=== PATIENT | female | born 1955 | race Caucasian/White ===

== ENCOUNTER 2017-09-07 13:32 | Emergency (ER) | payer SELFPAY ==
--- NOTE | 2017-09-07 14:09 | ER Document Report ---
ED Medical Screen (RME) - General Chief Complaint: Numbness of Arm Stated Complaint: RIGHT SIDED NUMBNESS Time Seen by Provider: 09/07/17 14:06 Mode of Arrival: Ambulatory Information source: Patient Notes: This is a 61-year-old female with a history of rheumatoid arthritis, neuropathy , hypertension who presents to the emergency room with a one-week history of right facial numbness in the setting of medical noncompliance. Patient states her Medicaid ran out she has not been on her medicine since. She denies any focal motor weakness. She denies any pain. The numbness has been constant for the past week. I have greeted and performed a rapid initial assessment of this patient. A comprehensive ED assessment and evaluation of the patient, analysis of test results and completion of medical decision making process we will be contacted by additional ED providers. TRAVEL OUTSIDE OF THE [place] IN LAST 30 DAYS: No - Related Data Allergies/Adverse Reactions: No Known Allergies Allergy (Verified 09/07/17 13:33) Past Medical History - Social History Chew tobacco use (# tins/day): No Frequency of alcohol use: None Drug Abuse: None - Past Medical History Cardiac Medical History: Reports: Hx Hypertension Renal/ Medical History: Denies: Hx Peritoneal Dialysis Psychiatric Medical History: Reports: Hx Anxiety, Hx Dementia - Immunizations Hx Diphtheria, Pertussis, Tetanus Vaccination: Yes Physical Exam - Vital signs Vitals: Temp Pulse Resp BP Pulse Ox 98.1 F 94 20 164/113 H 96 09/07/17 13:37 09/07/17 13:37 09/07/17 13:37 09/07/17 13:37 09/07/17 13:37 Course - Vital Signs Vital signs: Temp Pulse Resp BP Pulse Ox 98.1 F 94 20 164/113 H 96 09/07/17 13:37 09/07/17 13:37 09/07/17 13:37 09/07/17 13:37 09/07/17 13:37
[2017-09-07 14:22] LABS: ABSOLUTE BASOPHILS # (AUTO) 0.1 10^3/uL (0.0-0.2); ABSOLUTE EOSINOPHILS # (AUTO) 0.1 10^3/uL (0.0-0.6); ABSOLUTE MONOCYTES (AUTO) 0.9 10^3/uL (0.1-1.4); ABSOLUTE NEUT (AUTO) 4.3 10^3/uL (1.7-8.2); BASOPHILS % (AUTO) 1.1 % (0-2); EOSINOPHILS % (AUTO) 1.3 % (0-6); HEMATOCRIT 39.8 % (36.0-47.0); HEMOGLOBIN 13.3 g/dL (12.0-15.5); LYMPHOCYTES % (AUTO) 35.3 % (13-45); MEAN CORPUSCULAR HEMOGLOBIN 33.6 pg (27.0-33.4); MEAN CORPUSCULAR HGB CONC 33.4 g/dL (32.0-36.0); MEAN CORPUSCULAR VOLUME 101 fl (80-97); MONOCYTES % (AUTO) 11.1 % (3-13); PLATELET COUNT 245 10^3/uL (150-450); RED BLOOD COUNT 3.96 10^6/uL (3.72-5.28); RED CELL DISTRIBUTION WIDTH 13.5 % (11.5-14.0); SEGMENTED NEUTROPHILS % (AUTO) 51.2 % (42-78); TOTAL CELLS COUNTED % (AUTO) 100 %; WHITE BLOOD COUNT 8.5 10^3/uL (4.0-10.5)
[2017-09-07] MEDS ORDERED: LISINOPRIL 5 MG TABLET PO ONE (14:31)
[2017-09-07 14:45] LABS: ALANINE AMINOTRANSFERASE 29 U/L (9-52); ALBUMIN 4.6 g/dL (3.5-5.0); ALKALINE PHOSPHATASE 86 U/L (38-126); ANION GAP 17 (5-19); ASPARTATE AMINO TRANSFERASE 38 U/L (14-36); BILIRUBIN,DIRECT 0.3 mg/dL (0.0-0.4); BILIRUBIN,TOTAL 0.3 mg/dL (0.2-1.3); BLOOD UREA NITROGEN 20 mg/dL (7-20); CALCIUM 9.8 mg/dL (8.4-10.2); CARBON DIOXIDE 18 mmol/L (22-30); CHLORIDE 109 mmol/L (98-107); GLUCOSE 115 mg/dL (75-110); POTASSIUM 3.6 mmol/L (3.6-5.0); TOTAL PROTEIN 8.2 g/dL (6.3-8.2)
--- NOTE | 2017-09-07 14:51 | RADIOLOGY REPORT (SQ) ---
EXAM DESCRIPTION: CT HEAD WITHOUT COMPLETED DATE/TIME: 09/07/2017 2:35 pm REASON FOR STUDY: right facial numbness COMPARISON: None. TECHNIQUE: Axial images acquired through the brain without intravenous contrast. Images reviewed wi th bone, brain and subdural windows. Additional sagittal and coronal reconstructions were generated. Images stored on PACS. All CT scanners at this facility use dose modulation, iterative reconstruction, and/or weight based d osing when appropriate to reduce radiation dose to as low as reasonably achievable (ALARA). [facility]: Dose Right [facility]: CareDose [facility]: Dose Right [facility]: Teradose 4D [facility]: Smart [employer] RADIATION DOSE: CT Rad equipment meets quality standard of care and radiation dose reduction techniq ues were employed. CTDIvol: 53.2 mGy. DLP: 964 mGy-cm.mGy. LIMITATIONS: None. FINDINGS: VENTRICLES: Prominent. CEREBRUM: No masses. No hemorrhage. No midline shift. Areas of low density in the white matter mos t likely due to chronic micro-vascular ischemic change. No evidence for acute infarction. CEREBELLUM: No masses. No hemorrhage. No alteration of density. No evidence for acute infarction. EXTRAAXIAL SPACES: Age-related involutional change. No fluid collections. No masses. ORBITS AND GLOBE: No intra- or extraconal masses. Normal contour of globe without masses. CALVARIUM: No fracture. PARANASAL SINUSES: No fluid or mucosal thickening. SOFT TISSUES: No mass or hematoma. OTHER: No other significant finding. IMPRESSION: CHRONIC CHANGES OF ATROPHY AND MICROVASCULAR ISCHEMIA. NO ACUTE PROCESS. EVIDENCE OF ACUTE STROKE: NO. TECHNICAL DOCUMENTATION: JOB ID: [id number] Quality ID # [id number]: Final reports with documentation of one or more dose reduction techniques (e.g., Au tomated exposure control, adjustment of the mA and/or kV according to patient size, use of iterative reconstruction technique) 2010 [employer]- All Rights Reserved Reading location - IP/workstation name: [email or web address]
--- NOTE | 2017-09-07 15:38 | ER Document Report ---
ED General - General Chief Complaint: Numbness of Arm Stated Complaint: RIGHT SIDED NUMBNESS Time Seen by Provider: 09/07/17 14:06 Mode of Arrival: Ambulatory Information source: Patient Notes: 61-year-old female presents emergency department with a one-week history of right facial numbness and right first 3 finger numbness. Symptoms have been constant. Patient denies any alleviating or exacerbating factors. She has a history of rheumatoid arthritis. She does not take any medications currently. Patient denies a history of CVA. Patient denies any vision changes, speech changes, weakness. TRAVEL OUTSIDE OF THE [place] IN LAST 30 DAYS: No - HPI Patient complains to provider of: R facial numbness Onset: Last week Onset/Duration: Gradual Severity: None Pain Level: Denies Associated symptoms: None Exacerbated by: Denies Relieved by: Denies Similar symptoms previously: No Recently seen / treated by doctor: No - Related Data Allergies/Adverse Reactions: No Known Allergies Allergy (Verified 09/07/17 13:33) Past Medical History - General Information source: Patient - Social History Smoking Status: Never Smoker Chew tobacco use (# tins/day): No Frequency of alcohol use: None Drug Abuse: None Family History: Reviewed & Not Pertinent Patient has suicidal ideation: No Patient has homicidal ideation: No - Past Medical History Cardiac Medical History: Reports: Hx Hypertension Renal/ Medical History: Denies: Hx Peritoneal Dialysis Psychiatric Medical History: Reports: Hx Anxiety, Hx Dementia - Immunizations Hx Diphtheria, Pertussis, Tetanus Vaccination: Yes Review of Systems - Review of Systems Constitutional: No symptoms reported EENT: No symptoms reported Cardiovascular: No symptoms reported Respiratory: No symptoms reported Gastrointestinal: No symptoms reported Genitourinary: No symptoms reported Musculoskeletal: No symptoms reported Skin: No symptoms reported Neurological/Psychological: Numbness -: Yes All other systems reviewed and negative Physical Exam - Vital signs Vitals: Temp Pulse Resp BP Pulse Ox 98.1 F 94 20 164/113 H 96 09/07/17 13:37 09/07/17 13:37 09/07/17 13:37 09/07/17 13:37 09/07/17 13:37 Interpretation: Hypertensive - Notes Notes: PHYSICAL EXAMINATION: GENERAL: Well-appearing, well-nourished and in no acute distress. HEAD: Atraumatic, normocephalic. EYES: Pupils equal round and reactive to light, extraocular movements intact, conjunctiva are normal. ENT: Nares patent, oropharynx clear without exudates. Moist mucous membranes. NECK: Normal range of motion, supple without lymphadenopathy LUNGS: Breath sounds clear to auscultation bilaterally and equal. No wheezes rales or rhonchi. HEART: Regular rate and rhythm without murmurs ABDOMEN: Soft, nontender, nondistended abdomen. No guarding, no rebound. No masses appreciated. Female : deferred Musculoskeletal: Normal range of motion, no pitting or edema. No cyanosis. NEUROLOGICAL: Cranial nerves grossly intact. Normal speech, normal gait. Normal motor exams. Decreased sensation to the Right lower face and Right first 3 fingers. PSYCH: Normal mood, normal affect. SKIN: Warm, Dry, normal turgor, no rashes or lesions noted. Course - Re-evaluation Re-evalutation: 09/07/17 16:25 NIH stroke score of 1. As symptoms have been ongoing for 1 week, patient is not a TPA candidate. I will refer the patient to neurology outpatient. Patient told to take a daily 325mg aspirin. I discussed the slightly elevated creatinine with the patient. She will follow up with her PCP regarding this. Patient instructed to take the medication as directed, to follow-up with her primary care physician and neurologist this week, and to return to emergency department for worsening symptoms. Patient and her family are agreeable with plan of care. - Vital Signs Vital signs: Temp Pulse Resp BP Pulse Ox 98.0 F 74 16 186/92 H 98 09/07/17 16:21 09/07/17 16:21 09/07/17 16:21 09/07/17 16:21 09/07/17 16:21 - Laboratory Result Diagrams: 09/07/17 14:15 09/07/17 14:15 Laboratory results interpreted by me: 09/07/17 09/07/17 14:15 14:15 MCV 101 H MCH 33.6 H Chloride 109 H Carbon Dioxide 18 L Creatinine 1.43 H Est GFR ( Amer) 45 L Est GFR (Non-Af Amer) 38 L Glucose 115 H AST 38 H - EKG Interpretation by Me Rhythm: NSR - Rate 77, MD interval 156, QRS duration 84, QTc 453, normal sinus rhythm, no ischemic changes. Discharge - Discharge Clinical Impression: Numbness and tingling Condition: Stable Disposition: HOME, SELF-CARE Instructions: Numbness or Paresthesia ([facility]) Additional Instructions: Follow up with your primary care physician this week. Take a daily 325mg aspirin. Return to the ED for worsening symptoms. Referrals: NASIM MIDDLETON MD [Primary Care Provider] - Follow up as needed JAYNA CHAPMAN MD [NO LOCAL MD] - Follow up as needed
--- NOTE | 2017-09-07 15:43 | RADIOLOGY REPORT (SQ) ---
EXAM DESCRIPTION: CHEST 2 VIEWS COMPLETED DATE/TIME: 09/07/2017 2:39 pm REASON FOR STUDY: right facial numbness COMPARISON: None. EXAM PARAMETERS: NUMBER OF VIEWS: two views TECHNIQUE: Digital Frontal and Lateral radiographic views of the chest acquired. RADIATION DOSE: NA LIMITATIONS: none FINDINGS: LUNGS AND PLEURA: Nodularity at the left upper lobe extending to the pleura. No pleural e ffusion or pneumothorax. MEDIASTINUM AND HILAR STRUCTURES: No masses or contour abnormalities. HEART AND VASCULAR STRUCTURES: Heart normal size. No evidence for failure. BONES: There are healed right-sided rib fractures. HARDWARE: None in the chest. IMPRESSION: Nodularity at the left upper lobe extending to the pleura ; CT thorax can help in furthe r evaluation. TECHNICAL DOCUMENTATION: JOB ID: [id number] 2010 [employer]- All Rights Reserved Reading location - IP/workstation name: [email or web address]
[2017-09-07 16:23] VITALS: BP 186/92
--- NOTE | 2017-09-08 07:28 | EKG REPORT ---
SEVERITY:- NORMAL ECG - SINUS RHYTHM : Confirmed by: Jermaine Delgado MD 08-Sep-2017 07:28:07
== END 2017-09-07 16:46 | disposition home or self-care (01) ==
LOC: ER 13:32
DX: R20.0 Anesthesia of skin (principal); R20.2 Paresthesia of skin; I10 Essential (primary) hypertension; R79.89 Other specified abnormal findings of blood chemistry
CPT/HCPCS: 36415; 70450; 71046; 80053; 85025; 93005; 93010; 99285

== ENCOUNTER 2019-03-29 13:35 | Inpatient (IN) | payer MEDICARE ==
--- NOTE | 2019-03-29 13:43 | ER Document Report ---
ED Medical Screen (RME) - General Chief Complaint: Fall Stated Complaint: FALL/RIGHT SIDE PAIN Time Seen by Provider: 03/29/19 13:40 Mode of Arrival: Wheelchair Information source: Patient Notes: Patient presents emergency department with complaints of right hip pain. Reports she tripped and fell on her right hip. Reports history of fracture hip. Patient has swelling to the right side. X-ray ordered. I have greeted and performed a rapid initial assessment of this patient. A comprehensive ED assessment and evaluation of the patient, analysis of test results and completion of the medical decision making process will be conducted by additional ED providers. TRAVEL OUTSIDE OF THE [place] IN LAST 30 DAYS: No - Related Data Allergies/Adverse Reactions: No Known Allergies Allergy (Verified 09/07/17 13:33) Past Medical History - Past Medical History Cardiac Medical History: Reports: Hx Hypertension Renal/ Medical History: Denies: Hx Peritoneal Dialysis Psychiatric Medical History: Reports: Hx Anxiety, Hx Dementia - Immunizations Hx Diphtheria, Pertussis, Tetanus Vaccination: Yes Physical Exam - Vital signs Vitals: Temp Pulse Resp BP Pulse Ox 98.0 F 97 16 178/105 H 95 03/29/19 13:51 03/29/19 13:51 03/29/19 13:51 03/29/19 13:51 03/29/19 13:51 Course - Vital Signs Vital signs: Temp Pulse Resp BP Pulse Ox 97.8 F 82 12 162/108 H 96 03/29/19 14:43 03/29/19 14:43 03/29/19 14:43 03/29/19 14:43 03/29/19 14:43 - Laboratory Result Diagrams: 03/29/19 15:00 03/29/19 15:00 Laboratory results interpreted by me: 03/29/19 03/29/19 15:00 15:00 WBC 22.5 H Seg Neuts % (Manual) 91 H Lymphocytes % (Manual) 5 L Abs Neuts (Manual) 20.5 H Creatinine 1.32 H Est GFR ( Amer) 50 L Est GFR (MDRD) Non-Af 41 L Glucose 113 H AST 38 H Alkaline Phosphatase 138 H Total Protein 8.9 H Doctor's Discharge - Discharge Clinical Impression: Hip fracture, Hypertension, Fall Condition: Fair Disposition: ADMITTED INPATIENT
[2019-03-29] MEDS ORDERED: FENTANYL CITRATE INJ/PF 100 MCG/2 ML AMPUL IV ONE (14:22)
--- NOTE | 2019-03-29 14:48 | RADIOLOGY REPORT (SQ) ---
EXAM DESCRIPTION: HIP RIGHT AP/LATERAL COMPLETED DATE/TIME: 03/29/2019 2:34 pm REASON FOR STUDY: fall, hx fx COMPARISON: None. NUMBER OF VIEWS: Two views. TECHNIQUE: AP pelvis and additional frog-leg view of the right hip. LIMITATIONS: None. FINDINGS: MINERALIZATION: Normal. RIGHT HIP: Comminuted intertrochanteric fracture. No worrisome bone lesions. LEFT HIP: No fracture or dislocation. No worrisome bone lesions. PUBIS AND ISCHIUM: No fracture. PELVIS: No fracture. SACRUM: No fracture or dislocation. No worrisome bone lesions. LOWER LUMBAR SPINE: No fracture or dislocation. No worrisome bone lesions. No significant disc disea se. SOFT TISSUES: No findings. OTHER: No other significant finding. IMPRESSION: COMMINUTED INTERTROCHANTERIC FRACTURE OF THE RIGHT HIP. TECHNICAL DOCUMENTATION: JOB ID: [id number] [employer] All Rights Reserved Reading location - IP/workstation name: [email or web address]
--- NOTE | 2019-03-29 15:08 | ER Document Report ---
ED Fall - General Chief Complaint: Fall Stated Complaint: FALL/RIGHT SIDE PAIN Time Seen by Provider: 03/29/19 13:40 Mode of Arrival: Wheelchair Information source: Patient Notes: Patient reports tripping over a coremaker floor yesterday evening falling landing on her right hip yesterday. Patient without any other injury. Patient complains of right hip pain and inability to ambulate. TRAVEL OUTSIDE OF THE [place] IN LAST 30 DAYS: No - HPI Occurred: Yesterday Where: Home Context: Tripped Associated symptoms: Difficulty walking Location of injury/pain: Hip Quality of pain: Sharp Pain Level: 4 - Related data Allergies/Adverse Reactions: No Known Allergies Allergy (Verified 09/07/17 13:33) Past Medical History - General Information source: Patient, Relative - Social History Smoking Status: Current Every Day Smoker Frequency of alcohol use: Occasional, former heavy Drug Abuse: Other - Family report misuse of prescription and OTC meds when available to pt Occupation: none Lives with: Family Family History: Reviewed & Not Pertinent - Past Medical History Cardiac Medical History: Reports: Hx Hypertension Renal/ Medical History: Denies: Hx Peritoneal Dialysis Musculoskeletal Medical History: Reports Hx Arthritis - RA Psychiatric Medical History: Reports: Hx Anxiety Surgical Hx: Negative - Immunizations Hx Diphtheria, Pertussis, Tetanus Vaccination: Yes Review of Systems - Review of Systems Constitutional: No symptoms reported. denies: Fever, Recent illness EENT: No symptoms reported Cardiovascular: No symptoms reported. denies: Chest pain Respiratory: No symptoms reported. denies: Cough, Short of breath Gastrointestinal: No symptoms reported. denies: Vomiting Genitourinary: No symptoms reported. denies: Dysuria Female Genitourinary: No symptoms reported Musculoskeletal: Joint pain - Right hip. denies: Back pain Skin: No symptoms reported Hematologic/Lymphatic: No symptoms reported Neurological/Psychological: denies: Lost consciousness, Headaches Physical Exam - Vital signs Vitals: Temp Pulse Resp BP Pulse Ox 98.0 F 97 16 178/105 H 95 03/29/19 13:51 03/29/19 13:51 03/29/19 13:51 03/29/19 13:51 03/29/19 13:51 - General General appearance: Appears well, Alert In distress: None - HEENT Head: Normocephalic, Atraumatic Eyes: Normal Conjunctiva: Normal Nasal: Normal Mouth/Lips: Normal Mucous membranes: Normal Neck: Normal, Supple. No: Lymphadenopathy - Respiratory Respiratory status: No respiratory distress Chest status: Nontender Breath sounds: Normal Chest palpation: Normal - Cardiovascular Rhythm: Regular Heart sounds: S1 appreciated, S2 appreciated Pulses: Normal: Dorsalis pedis - Abdominal Inspection: Normal Tenderness: Nontender - Extremities General upper extremity: Normal inspection, Normal strength General lower extremity: Tender - Right hip tenderness, Edema Hip: Tender - Right hip, Deformity, Ecchymosis, Pain with ROM, Unable to bear weight - Neurological Neuro grossly intact: Yes Cognition: Normal [place] Coma Scale Eye Opening: Spontaneous Michelle Coma Scale Verbal: Oriented [place] Coma Scale Motor: Obeys Commands Michelle Coma Scale Total: 15 - Psychological Associated symptoms: Normal affect, Normal mood - Skin Skin Temperature: Warm Skin Color: Normal Course - Re-evaluation Re-evalutation: 03/29/19 15:[address] Crawford regarding patient presentation, advises calling back once patient's diagnostic test results have returned so he can determine whether or not patient should be admitted under his services or the patient's primary doctor services. 03/29/19 17:[address] Remy who does agree to accept patient to a telemetry bed. 03/29/19 20:32 - Vital Signs Vital signs: Temp Pulse Resp BP Pulse Ox 97.8 F 82 12 162/108 H 96 03/29/19 14:43 03/29/19 14:43 03/29/19 14:43 03/29/19 14:43 03/29/19 14:43 - Laboratory Result Diagrams: 03/29/19 15:00 03/29/19 15:00 Laboratory results interpreted by me: 03/29/19 03/29/19 15:00 15:00 WBC 22.5 H Seg Neuts % (Manual) 91 H Lymphocytes % (Manual) 5 L Abs Neuts (Manual) 20.5 H Creatinine 1.32 H Est GFR ( Amer) 50 L Est GFR (MDRD) Non-Af 41 L Glucose 113 H AST 38 H Alkaline Phosphatase 138 H Total Protein 8.9 H - Diagnostic Test Radiology reviewed: Image reviewed, Reports reviewed Discharge - Discharge Clinical Impression: Hip fracture Qualifiers: Encounter type: initial encounter Fracture type: closed Laterality: right Qualified Code(s): S72.001A - Fracture of unspecified part of neck of right femur, initial encounter for closed fracture Hypertension Qualifiers: Hypertension type: unspecified Qualified Code(s): I10 - Essential (primary) hypertension Fall Qualifiers: Encounter type: initial encounter Qualified Code(s): W19.XXXA - Unspecified fall, initial encounter Condition: Fair Disposition: ADMITTED INPATIENT Admitting Provider: Jonel Unit Admitted: Telemetry
--- NOTE | 2019-03-29 15:23 | RADIOLOGY REPORT (SQ) ---
EXAM DESCRIPTION: CHEST SINGLE VIEW COMPLETED DATE/TIME: 03/29/2019 3:12 pm REASON FOR STUDY: fall COMPARISON: 09/07/2017. EXAM PARAMETERS: NUMBER OF VIEWS: One view. TECHNIQUE: Single frontal radiographic view of the chest acquired. RADIATION DOSE: NA LIMITATIONS: None. FINDINGS: LUNGS AND PLEURA: Chronic changes in the left upper lobe. No focal infiltrates, masses or pneumothorax. No pleural effusion. MEDIASTINUM AND HILAR STRUCTURES: No masses. Contour normal. HEART AND VASCULAR STRUCTURES: Heart normal in size. Normal vasculature. BONES: No acute findings. Old rib fractures. HARDWARE: None in the chest. OTHER: No other significant finding. IMPRESSION: NO ACUTE RADIOGRAPHIC FINDING IN THE CHEST. TECHNICAL DOCUMENTATION: JOB ID: [id number] [employer]- All Rights Reserved Reading location - IP/workstation name: [email or web address]
[2019-03-29 15:42] LABS: HEMATOCRIT 37.2 % (36.0-47.0); HEMOGLOBIN 12.5 g/dL (12.0-15.5); MEAN CORPUSCULAR HEMOGLOBIN 32.1 pg (27.0-33.4); MEAN CORPUSCULAR HGB CONC 33.6 g/dL (32.0-36.0); MEAN CORPUSCULAR VOLUME 96 fl (80-97); PLATELET COUNT 358 10^3/uL (150-450); RED BLOOD COUNT 3.89 10^6/uL (3.72-5.28); RED CELL DISTRIBUTION WIDTH 13.9 % (11.5-14.0); WHITE BLOOD COUNT 22.5 10^3/uL (4.0-10.5)
[2019-03-29 15:58] LABS: ALBUMIN 4.4 g/dL (3.5-5.0); ALKALINE PHOSPHATASE 138 U/L (38-126); ANION GAP 15 (5-19); ASPARTATE AMINO TRANSFERASE 38 U/L (14-36); BILIRUBIN,DIRECT 0.4 mg/dL (0.0-0.4); BILIRUBIN,TOTAL 0.8 mg/dL (0.2-1.3); BLOOD UREA NITROGEN 16 mg/dL (7-20); CALCIUM 9.7 mg/dL (8.4-10.2); CARBON DIOXIDE 22 mmol/L (22-30); CHLORIDE 106 mmol/L (98-107); GLUCOSE 113 mg/dL (75-110); POTASSIUM 4.6 mmol/L (3.6-5.0); TOTAL PROTEIN 8.9 g/dL (6.3-8.2)
[2019-03-29 16:14] LABS: ABSOLUTE LYMPHOCYTES# (MANUAL) 1.1 10^3/uL (0.5-4.7); ABSOLUTE MONOCYTES # (MANUAL) 0.9 10^3/uL (0.1-1.4); BASOPHILS % (MANUAL) 0 % (0-2); EOSINOPHILS % (MANUAL) 0 % (0-6); LYMPHOCYTES % (MANUAL) 5 % (13-45); MONOCYTES % (MANUAL) 4 % (3-13); PLATELET COMMENT ADEQUATE; PLATELET LARGE PRESENT; RBC MORPHOLOGY COMMENT NORMO-CYTIC/CHROMIC; SEGMENTED NEUTROPHILS % (MAN) 91 % (42-78); TOTAL CELLS COUNTED 100
[2019-03-29] MEDS ORDERED: NORMAL SALINE 1000 ML 1,000 ML IV ONE (16:55)
[2019-03-29] MEDS ORDERED: LISINOPRIL 10 MG TABLET PO ONE ×2 (17:11→19:00)
[2019-03-29] MEDS ORDERED: MORPHINE SULFATE 10 MG/ML INJ IV ONE (17:11)
[2019-03-29] MEDS ORDERED: MORPHINE SULFATE 10 MG/ML INJ IV PRN (18:16)
[2019-03-29] MEDS ORDERED: GLUCAGON,HUMAN RECOMB 1 MG INJ SUBCUT PRN (18:26)
[2019-03-29] MEDS ORDERED: DEXTROSE 50%-WATER 25 GM/50 ML DISP.SYRIN IV PRN ×2 (18:26)
[2019-03-29] MEDS ORDERED: DEXTROSE 40% GEL 15 GM TUBE PO PRN ×2 (18:26)
--- NOTE | 2019-03-29 18:31 | PDOC CONSULTATION ---
Consultation Consult Date: 03/29/19 Attending physician:: ARLETH VILLANUEVA Provider Consulted: LONG TALBERT History of Present Illness Admission Date/PCP: 03/29/19 17:13 NASIM MIDDLETON MD Patient complains of: Right Hip Pain History of Present Illness: DARIA FITZGERALD is a 63 year old female who yesterday evening sustained a fall onto her right hip and ribs. Patient was unable to ambulate and was then brought to the emergency room today. Patient states pain is worse with any attempted motion and usage of the leg. Has improved somewhat with pain medication. Denies numbness or tingling. Denies headache dizziness or loss of consciousness. Past Medical History Cardiac Medical History: Reports: Hypertension Musculoskeltal Medical History: Reports: Arthritis - RA Psychiatric Medical History: Reports: Dementia Social History Smoking Status: Current Every Day Smoker Family History Family History: Reviewed & Not Pertinent Parental Family History Reviewed: No Children Family History Reviewed: No Sibling(s) Family History Reviewed.: No Medication/Allergy Home Medications: No Home Medications 09/07/17 Allergies/Adverse Reactions: No Known Allergies Allergy (Verified 09/07/17 13:33) Review of Systems Constitutional: ABSENT: chills, fever(s), headache(s), weight gain, weight loss Eyes: ABSENT: visual disturbances Ears: ABSENT: hearing changes Cardiovascular: ABSENT: chest pain, dyspnea on exertion, edema, orthropnea, palpitations Respiratory: ABSENT: cough, hemoptysis Gastrointestinal: ABSENT: abdominal pain, constipation, diarrhea, hematemesis, hematochezia, nausea, vomiting Genitourinary: ABSENT: dysuria, hematuria Musculoskeletal: PRESENT: as per HPI Integumentary: ABSENT: rash, wounds Neurological: ABSENT: abnormal gait, abnormal speech, confusion, dizziness, focal weakness, syncope Psychiatric: ABSENT: anxiety, depression, homidical ideation, suicidal ideation Endocrine: ABSENT: cold intolerance, heat intolerance, menstrual abnormalities, polydipsia, polyuria Hematologic/Lymphatic: ABSENT: easy bleeding, easy bruising, lymphadenopathy Physical Exam Vital Signs: Temp Pulse Resp BP Pulse Ox 97.8 F 82 12 162/108 H 96 03/29/19 14:43 03/29/19 14:43 03/29/19 14:43 03/29/19 14:43 03/29/19 14:43 Intake & Output 03/28/19 03/29/19 03/30/19 06:59 06:59 06:59 Intake Total 1000 Balance 1000 Weight 56 kg General appearance: PRESENT: no acute distress, well-developed, well-nourished, other - Thin appearing female Head exam: PRESENT: atraumatic, normocephalic Eye exam: PRESENT: conjunctiva pink, EOMI, PERRLA. ABSENT: scleral icterus Ear exam: PRESENT: normal external ear exam Mouth exam: PRESENT: moist, tongue midline Teeth exam: PRESENT: poor dentation Neck exam: PRESENT: full ROM. ABSENT: carotid bruit, JVD, lymphadenopathy, thyromegaly Respiratory exam: PRESENT: unlabored, other - Tenderness along the right chest wall Cardiovascular exam: PRESENT: RRR. ABSENT: diastolic murmur, rubs, systolic murmur Pulses: PRESENT: normal dorsalis pedis pul, +2 pedal pulses bilateral Vascular exam: PRESENT: normal capillary refill GI/Abdominal exam: PRESENT: normal bowel sounds, soft. ABSENT: distended, guarding, mass, organolmegaly, rebound, tenderness Rectal exam: PRESENT: deferred Musculoskeletal exam: PRESENT: other - Right hip: Short/externally rotated. Positive logroll. No calf tenderness. Negative Homans. Intact plantarflexion/dorsiflexion. No sensory deficits. Dorsalis pedis pulse 2+. Neurological exam: PRESENT: alert, awake, oriented to person, oriented to place, oriented to time, oriented to situation, CN II-XII grossly intact. ABSENT: motor sensory deficit Psychiatric exam: PRESENT: appropriate affect, normal mood. ABSENT: homicidal ideation, suicidal ideation Skin exam: PRESENT: dry, intact, warm. ABSENT: cyanosis, rash Results Laboratory Results: 03/29/19 15:00 03/29/19 15:00 03/29/19 03/29/19 15:00 15:00 WBC 22.5 H RBC 3.89 Hgb 12.5 Hct 37.2 MCV 96 MCH 32.1 MCHC 33.6 RDW 13.9 Plt Count 358 Seg Neutrophils % Not Reportable Sodium 142.8 Potassium 4.6 Chloride 106 Carbon Dioxide 22 Anion Gap 15 BUN 16 Creatinine 1.32 H Est GFR ( Amer) 50 L Glucose 113 H Calcium 9.7 Total Bilirubin 0.8 AST 38 H Alkaline Phosphatase 138 H Total Protein 8.9 H Albumin 4.4 Impressions: Hip/Pelvis X-Ray 03/29/19 13:42 IMPRESSION: COMMINUTED INTERTROCHANTERIC FRACTURE OF THE RIGHT HIP. Chest X-Ray 03/29/19 15:01 IMPRESSION: NO ACUTE RADIOGRAPHIC FINDING IN THE CHEST. Status: Image reviewed by me - I have reviewed patient's radiographs consistent with comminuted intertrochanteric fracture Assessment & Plan - Diagnosis (1) Fracture, intertrochanteric, right femur Qualifiers: Encounter type: initial encounter Fracture type: closed Fracture alignment: displaced Qualified Code(s): S72.141A - Displaced intertrochanteric fracture of right femur, initial encounter for closed fracture Is this a current diagnosis for this admission?: Yes Plan: Patient sustained right intertrochanteric fracture. Today I discussed treatment options with patient and family decision was made to proceed with operative intervention. Postoperative outcomes, prognosis, rehabilitation and expectations have been explained. Plan will be proceed with operative intervention on 03/30/2019 pending medical clearance. Risk and benefits of the surgical procedure were explained patient verbalized understanding consented for surgical procedure which includes right hip cephalo-medullary nail risks including anesthetic complications, excessive bleeding, infection, injury to surrounding nerves, vessels and tendons, bruising, healing difficulties, scar f ormation, hardware complication, posttraumatic arthritis and any unforseen complication.
--- NOTE | 2019-03-29 18:43 | EKG REPORT ---
SEVERITY:- NORMAL ECG - SINUS RHYTHM : Confirmed by: Jermaine Delgado MD 29-Mar-2019 18:42:29
[2019-03-29 18:50] LABS: PROTHROMBIN TIME 13.2 SEC (11.4-15.4)
[2019-03-29 18:51] LABS: PARTIAL THROMBOPLASTIN TIME 27.9 SEC (23.5-35.8)
[2019-03-29] MEDS: NORMAL SALINE 1000 ML 1,000 ML IV PRN (19:30)
[2019-03-29 20:11] LABS: APPEARANCE,URINE CLEAR; BILIRUBIN,URINE NEGATIVE (NEGATIVE); COLOR,URINE YELLOW; GLUCOSE, URINE NEGATIVE (NEGATIVE); KETONES,URINE NEGATIVE (NEGATIVE); PROTEIN,URINE 30 mg/dL (NEGATIVE); URINE SPECIFIC GRAVITY 1.013; UROBILINOGEN,URINE NEGATIVE mg/dL (<2.0)
[2019-03-29] MEDS: MORPHINE SULFATE 10 MG/ML INJ IV PRN ×2 (20:41→23:42)
[2019-03-30] MEDS ORDERED: INFLUENZA QUAD (6MOS+) 2019-20 VAC 0.5 ML SYR IM ONE (00:06)
[2019-03-30] MEDS: MORPHINE SULFATE 10 MG/ML INJ IV PRN ×4 (03:43→21:20)
[2019-03-30 05:14] LABS: HEMATOCRIT 34.4 % (36.0-47.0); HEMOGLOBIN 11.4 g/dL (12.0-15.5); MEAN CORPUSCULAR HEMOGLOBIN 31.8 pg (27.0-33.4); MEAN CORPUSCULAR HGB CONC 33.2 g/dL (32.0-36.0); MEAN CORPUSCULAR VOLUME 96 fl (80-97); PLATELET COUNT 327 10^3/uL (150-450); RED CELL DISTRIBUTION WIDTH 13.8 % (11.5-14.0); WHITE BLOOD COUNT 23.9 10^3/uL (4.0-10.5)
[2019-03-30 05:36] LABS: ALBUMIN 3.6 g/dL (3.5-5.0); ALKALINE PHOSPHATASE 112 U/L (38-126); ANION GAP 12 (5-19); ASPARTATE AMINO TRANSFERASE 28 U/L (14-36); BILIRUBIN,DIRECT 0.3 mg/dL (0.0-0.4); BILIRUBIN,TOTAL 0.7 mg/dL (0.2-1.3); BLOOD UREA NITROGEN 14 mg/dL (7-20); CALCIUM 8.9 mg/dL (8.4-10.2); CARBON DIOXIDE 20 mmol/L (22-30); CHLORIDE 109 mmol/L (98-107); GLUCOSE 97 mg/dL (75-110); POTASSIUM 4.2 mmol/L (3.6-5.0); TOTAL PROTEIN 7.5 g/dL (6.3-8.2)
[2019-03-30 06:00] LABS: ABSOLUTE LYMPHOCYTES# (MANUAL) 1.2 10^3/uL (0.5-4.7); ABSOLUTE MONOCYTES # (MANUAL) 0.5 10^3/uL (0.1-1.4); BAND NEUTROPHILS % (MANUAL) 1 % (3-5); BASOPHILS % (MANUAL) 1 % (0-2); EOSINOPHILS % (MANUAL) 0 % (0-6); LYMPHOCYTES % (MANUAL) 5 % (13-45); MONOCYTES % (MANUAL) 2 % (3-13); SEGMENTED NEUTROPHILS % (MAN) 91 % (42-78); TOTAL CELLS COUNTED 100
[2019-03-30] MEDS ORDERED: PANTOPRAZOLE SODIUM 40 MG TABLET.DR PO SCH (06:00)
[2019-03-30 06:01] LABS: PLATELET COMMENT ADEQUATE
[2019-03-30 06:03] LABS: RBC MORPHOLOGY COMMENT NORMO-CYTIC/CHROMIC
[2019-03-30] MEDS: PANTOPRAZOLE SODIUM 40 MG TABLET.DR PO SCH ×2 (06:39→18:53)
[2019-03-30] MEDS: LISINOPRIL 10 MG TABLET PO SCH (09:58)
[2019-03-30] MEDS: NORMAL SALINE 1000 ML 1,000 ML IV PRN (10:01)
--- NOTE | 2019-03-30 11:44 | PDOC H&P ---
History of Present Illness Admission Date/PCP: 03/29/19 17:13 NASIM MIDDLETON MD Patient complains of: Fall, Pain in right hip History of Present Illness: DARIA FITZGERALD is a 63 [address] of [address] Middleton who presented to the ED for further evaluation of pain in her right hip joint. Patient reported that she tripped over object in her home and fell. She subsequently developed pain in her right hip and difficulty with ambulation. She denied any preceding chest pain, palpitation, or subsequent loss of consciousness. Her initial evaluation was remarkable to right hip comminuted intertrochanteric fracture. She was seen in consultation by [employer] orthopedic surgeon with recommendation of surgical intervention and admission to medical service. Her morbidities are as listed below. Past Medical History Cardiac Medical History: Reports: Hypertension Musculoskeltal Medical History: Reports: Arthritis - RA Psychiatric Medical History: Reports: Dementia Social History Smoking Status: Current Every Day Smoker - Advance Directive Resuscitation Status: Full Code Family History Family History: Reviewed & Not Pertinent Parental Family History Reviewed: Yes Children Family History Reviewed: Yes Sibling(s) Family History Reviewed.: Yes Medication/Allergy Home Medications: Esomeprazole Mag Trihydrate [Nexium] 40 mg PO QHS 03/30/19 Allergies/Adverse Reactions: propoxyphene [From Darvocet-N] Allergy (Intermediate, Verified 03/29/19 23:22) VOMITING Review of Systems Constitutional: ABSENT: chills, fever(s), headache(s), weight gain, weight loss Eyes: ABSENT: visual disturbances Ears: ABSENT: hearing changes Nose, Mouth, and Throat: ABSENT: headache(s), vertigo Cardiovascular: ABSENT: chest pain, dyspnea on exertion, edema, orthropnea, palpitations Respiratory: ABSENT: cough, hemoptysis Gastrointestinal: ABSENT: abdominal pain, constipation, diarrhea, hematemesis, hematochezia, nausea, vomiting Genitourinary: ABSENT: dysuria, hematuria Musculoskeletal: PRESENT: deformity - multiple joints involvement with arthritis Integumentary: PRESENT: rash - on left leg, long standing.. ABSENT: wounds Neurological: ABSENT: abnormal gait, abnormal speech, confusion, dizziness, focal weakness, syncope Psychiatric: ABSENT: anxiety, depression, homidical ideation, suicidal ideation Endocrine: ABSENT: cold intolerance, heat intolerance, polydipsia, polyuria Hematologic/Lymphatic: ABSENT: easy bleeding, easy bruising, lymphadenopathy Allergic/Immunologic: ABSENT: seasonal rhinorrhea Physical Exam Vital Signs: Temp Pulse Resp BP Pulse Ox 97.8 F 82 12 162/108 H 96 03/29/19 14:43 03/29/19 14:43 03/29/19 14:43 03/29/19 14:43 03/29/19 14:43 Intake & Output 03/28/19 03/29/19 03/30/19 06:59 06:59 06:59 Weight 56 kg General appearance: PRESENT: mild distress - from right hip fracture relate pain, well-developed, well-nourished Head exam: PRESENT: atraumatic, normocephalic Eye exam: PRESENT: conjunctiva pink, EOMI, PERRLA. ABSENT: scleral icterus Ear exam: PRESENT: normal external ear exam Mouth exam: PRESENT: moist Respiratory exam: PRESENT: clear to auscultation dee Cardiovascular exam: PRESENT: RRR. ABSENT: diastolic murmur, rubs, systolic murmur Vascular exam: ABSENT: pallor GI/Abdominal exam: PRESENT: normal bowel sounds, soft. ABSENT: distended, guarding, mass, organolmegaly, rebound, tenderness Rectal exam: PRESENT: deferred Extremities exam: PRESENT: other - external rotation f right lower extremity related to her intertrochanteric fracture. ABSENT: pedal edema Neurological exam: PRESENT: alert, awake, oriented to person, oriented to place, oriented to time, oriented to situation, CN II-XII grossly intact. ABSENT: motor sensory deficit Psychiatric exam: PRESENT: appropriate affect, normal mood. ABSENT: homicidal ideation, suicidal ideation Skin exam: PRESENT: dry, rash - dry scaly excuriated rash on left leg and foot, warm Results Laboratory Results: 03/29/19 15:00 03/29/19 15:00 03/29/19 03/29/19 15:00 15:00 WBC 22.5 H RBC 3.89 Hgb 12.5 Hct 37.2 MCV 96 MCH 32.1 MCHC 33.6 RDW 13.9 Plt Count 358 Seg Neutrophils % Not Reportable Sodium 142.8 Potassium 4.6 Chloride 106 Carbon Dioxide 22 Anion Gap 15 BUN 16 Creatinine 1.32 H Est GFR ( Amer) 50 L Glucose 113 H Calcium 9.7 Total Bilirubin 0.8 AST 38 H Alkaline Phosphatase 138 H Total Protein 8.9 H Albumin 4.4 Impressions: Hip/Pelvis X-Ray 03/29/19 13:42 IMPRESSION: COMMINUTED INTERTROCHANTERIC FRACTURE OF THE RIGHT HIP. Chest X-Ray 03/29/19 15:01 IMPRESSION: NO ACUTE RADIOGRAPHIC FINDING IN THE CHEST. Assessment & Plan - Diagnosis (1) Fall Qualifiers: Encounter type: initial encounter Qualified Code(s): W19.XXXA - Unspecified fall, initial encounter Is this a current diagnosis for this admission?: Yes Plan: See covering admitting attending physician orders for details about care plan. (2) Fracture, intertrochanteric, right femur Qualifiers: Encounter type: initial encounter Fracture type: closed Fracture alignment: displaced Qualified Code(s): S72.141A - Displaced intertrochanteric fracture of right femur, initial encounter for closed fracture Is this a current diagnosis for this admission?: Yes Plan: See covering admitting attending physician orders for details about care plan. (3) Hypertension Qualifiers: Hypertension type: essential hypertension Qualified Code(s): I10 - Essential (primary) hypertension Is this a current diagnosis for this admission?: Yes Plan: See covering admitting attending physician orders for details about care plan. (4) Leukocytosis, unspecified Qualifiers: Leukocytosis type: unspecified Qualified Code(s): D72.829 - Elevated white blood cell count, unspecified Is this a current diagnosis for this admission?: Yes Plan: See covering admitting attending physician orders for details about care plan. - Time Time Spent: 50 to 70 Minutes Medications reviewed and adjusted accordingly: Yes Anticipated discharge: SNF - for short term rehabilitation Within: Other - Inpatient Certification Based on my medical assessment, after consideration of the patient's comorbidities, presenting symptoms, or acuity I expect that the services needed warrant INPATIENT care.: Yes I certify that my determination is in accordance with my understanding of Medicare's requirements for reasonable and necessary INPATIENT services [42 CFR 412.3e].: Yes Medical Necessity: Significant Comorbidiites Make Outpatient Treatment Too Risky, Need Close Monitoring Due to Risk of Patient Decompensation, Need For IV Fluids, Need For Continuous Telemetry Monitoring, Need for Surgery, Risk of Co mplication if Not Cared For in Hospital, Risk of Diagnosis Which Will Require Inpatient Eval/Care/Monitoring Post Hospital Care: D/C Ring Sewer Documentation - Plan Summary Plan Summary: See covering admitting attending physician orders for details about care plan. She is medically cleared for proposed surgical intervention as per orthopod schedule.
[2019-03-30] MEDS ORDERED: CEFAZOLIN INJ 1 GM VIAL ONE (14:01)
[2019-03-30] MEDS ORDERED: MIDAZOLAM 2 MG/2 ML INJ ONE (14:59)
[2019-03-30] MEDS ORDERED: KETAMINE HCL INJ 500 MG/10 ML VIAL ONE (14:59)
[2019-03-30] MEDS ORDERED: FENTANYL CITRATE INJ/PF 100 MCG/2 ML AMPUL ONE (14:59)
[2019-03-30] MEDS ORDERED: PROPOFOL INJ 200 MG/20 ML VIAL IV ONE (14:59)
[2019-03-30] MEDS ORDERED: FENTANYL CITRATE INJ/PF 100 MCG/2 ML AMPUL IV PRN ×3 (16:27)
[2019-03-30] MEDS ORDERED: MEPERIDINE HCL/PF INJ 25 MG/1 ML DISP.SYRIN IV PRN (16:27)
[2019-03-30] MEDS ORDERED: PROMETHAZINE HCL INJ 25 MG/1 ML VIAL IV PRN ×2 (16:27)
[2019-03-30] MEDS ORDERED: DIPHENHYDRAMINE HCL 50 MG/ML VIAL IV PRN (16:27)
[2019-03-30] MEDS ORDERED: MORPHINE SULFATE 10 MG/ML INJ IV PRN (16:27)
--- NOTE | 2019-03-30 17:26 | Operative Report ---
Operative Report DATE OF SURGERY: 03/30/19 PREOPERATIVE DIAGNOSIS: Right reverse oblique intertrochanteric fracture POSTOPERATIVE DIAGNOSIS: Same OPERATION: Right hip cephalo-medullary long nail SURGEON: LONG TALBERT COMPLICATIONS: None ESTIMATED BLOOD LOSS: 150 cc PROCEDURE: Indication for above procedure: 63-year-old female who sustained a fall at home injuring her right hip. She was then seen at the emergency room where x-rays confirmed fracture. Patient was admitted to the medical service and was deemed medically optimized for operative intervention. Risk and benefits of the surgical procedure were explained to the patient and family verbalized understanding consented for procedure. Procedure in detail: Patient was seen and evaluated in the preoperative holding area. The right lower extremity was initialized and marked. Patient received 2 g Ancef IV for bacterial prophylaxis. Patient was taken back to the operative room where transferred operative table. Patient was placed under spinal anesthesia. Once adequate anesthetized he was carefully placed onto the hip positioner the nonoperative lower extremity and bilateral upper extremities were carefully padded and the peroneal nerve was padded and on the nonoperative extremity. The operative extremity was placed in a traction along with adduction and internal rotation. A surgical team debriefing was performed ensuring all instrumentation was available, the surgical procedure was discussed with possible concerns reviewed. A timeout was done identifying correct patient, procedure and extremity everyone in attendance agree with this and verbalized no concerns. Reduction maneuver with the use of the hip traction table were done and C-arm fluoroscopy was used to confirm optimal reduction of the intertrochanteric fracture. Once this was confirmed the lower extremity was prepped with chlor prep and draped in a sterile fashion. At this point a small skin incision was made proximal to the greater trochanter. The guidewire was placed onto the tip of the trochanter advanced down to the level of the lesser trochanter. There was evidence of chronic prior trochanteric fracture not previously evident on initial injury radiographs along with significant comminution along the medial calcar and lesser trochanter with reverse obliquity fracture configuration. AP and lateral fluoroscopy was used to confirm appropriate placement of the guidewire. The skin incision was then extended and the underlying fascia opened up carefully to the tip of the greater trochanter. The entry reamer was then used and advanced to the level of the lesser trochanter. At this point Vero 11 mm x 380 mm long gamma nail was opened up and placed onto the aiming arm and advanced down the shaft of the femur. AP and lateral fluoroscopy was then used to confirm appropriate placement of the nail. Then turned my attention to the compression screw fixation in the femoral head. The trochars were advanced to the skin, a skin incision was made, careful dissection down to the fascia to the lateral femoral cortex was then partaken. The guidewire was then used and placed in the center center position with the tip apex distance less than 25 mm. Once this position was obtained the size of the compression screw was measured. AP and lateral fluoroscopy used to confirm appropriate placement of our guide wire. The step reamer was used to drill up through the femoral neck and head. I then carefully advanced the compression screw into position. AP and lateral fluoroscopy was done to confirm appropriate placement of the compression screw this was then locked into position proximally. The compression screw was then disengaged from its mounting device and the guidewire was removed. Lastly proceeded with locking of the nail distally. Perfect circles were obtained. 2 stab incisions were made along the dynamic and static distal locking holes. The near and 4 cortices were then drilled and appropriate sized distal locking screws placed. At completion final radiographs were performed demonstrating acceptable alignment of the nail and fracture. The deep tissues were closed with 0 Vicryl suture, subcutaneous tissues were closed with 3-0 Monocryl suture. The skin was closed a running 3-0 subcuticular Monocryl suture and reinforced with Dermabond & Steri-Strips. A dressing was placed. Sponge counts, instrument counts and needle counts were correct. Patient was then transferred from the operating room table to the operating room stretcher. The was no intraoperative complications patient tolerated procedure well was stable to PACU. Implants used: Vero 11 x 380 mm 125 Long Gamma Nail with a 85 mm compression screw Postoperative plan: Patient will begin physical therapy on postop day #1 we will begin aspirin for DVT prophylaxis
[2019-03-30] MEDS ORDERED: CEFAZOLIN 2 GM/D5W RTU 2 GM/50 ML RTUPB IV SCH (18:00)
--- NOTE | 2019-03-30 18:45 | PDOC PROGRESS REPORT ---
Subjective Progress Note for:: 03/30/19 Subjective:: Patient was taken to operating theater today for ORIF of her right hip intertrochanteric fracture. Currently pain is adequately controlled. No chest pain or difficulty with breathing. No reported fever or chills. Reason For Visit: FALL AT HOME,RIGHT COMMUNITAID INTER TROCHAMTERIC Physical Exam Vital Signs: Temp Pulse Resp BP Pulse Ox 98.6 F 98 20 158/74 H 93 03/30/19 12:00 03/30/19 12:00 03/30/19 12:00 03/30/19 12:00 03/30/19 12:00 Intake & Output 03/29/19 03/30/19 03/31/19 06:59 06:59 06:59 Intake Total 2220 1000 Output Total 250 400 Balance 1970 600 Weight 54 kg General appearance: PRESENT: mild distress - due to pain. Head exam: PRESENT: atraumatic, normocephalic Eye exam: PRESENT: conjunctiva pink. ABSENT: scleral icterus Ear exam: PRESENT: normal external ear exam Mouth exam: PRESENT: moist Respiratory exam: PRESENT: clear to auscultation dee, decreased breath sounds - at lung bases Cardiovascular exam: PRESENT: RRR. ABSENT: diastolic murmur, rubs, systolic murmur Vascular exam: ABSENT: pallor GI/Abdominal exam: PRESENT: normal bowel sounds, soft. ABSENT: distended, guarding, mass, organolmegaly, rebound, tenderness Extremities exam: PRESENT: tenderness - right hip site of fracture and surgery. ABSENT: pedal edema Musculoskeletal exam: PRESENT: tenderness - right hip site of fracture and surgery Neurological exam: PRESENT: alert, awake Psychiatric exam: PRESENT: appropriate affect, normal mood. ABSENT: homicidal ideation, suicidal ideation Skin exam: PRESENT: dry, warm, other - surgical site dressing satisfactory. Results Laboratory Results: 03/30/19 04:37 03/30/19 04:37 03/29/19 03/30/19 03/30/19 18:40 04:37 04:37 WBC 23.9 H RBC 3.60 L Hgb 11.4 L Hct 34.4 L MCV 96 MCH 31.8 MCHC 33.2 RDW 13.8 Plt Count 327 Seg Neutrophils % Not Reportable Sodium 141.2 Potassium 4.2 Chloride 109 H Carbon Dioxide 20 L Anion Gap 12 BUN 14 Creatinine 1.34 H Est GFR ( Amer) 49 L Glucose 97 Calcium 8.9 Total Bilirubin 0.7 AST 28 Alkaline Phosphatase 112 Total Protein 7.5 Albumin 3.6 Urine Color YELLOW Urine Appearance CLEAR Urine pH 6.0 Ur Specific [place] 1.013 Urine Protein 30 H Urine Glucose (UA) NEGATIVE Urine Ketones NEGATIVE Urine Blood NEGATIVE Urine Nitrite Cancelled Ur Leukocyte Esterase Cancelled Urine WBC (Auto) Cancelled Urine RBC (Auto) 1 Impressions: Chest X-Ray 03/29/19 15:01 IMPRESSION: NO ACUTE RADIOGRAPHIC FINDING IN THE CHEST. Assessment & Plan - Diagnosis (1) Fall Qualifiers: Encounter type: initial encounter Qualified Code(s): W19.XXXA - Unspecified fall, initial encounter Is this a current diagnosis for this admission?: Yes (2) Fracture, intertrochanteric, right femur Qualifiers: Encounter type: initial encounter Fracture type: closed Fracture alignment: displaced Qualified Code(s): S72.141A - Displaced intertrochanteric fracture of right femur, initial encounter for closed fracture Is this a current diagnosis for this admission?: Yes (3) Hypertension Qualifiers: Hypertension type: essential hypertension Qualified Code(s): I10 - Essential (primary) hypertension Is this a current diagnosis for this admission?: Yes (4) Leukocytosis, unspecified Qualifiers: Leukocytosis type: unspecified Qualified Code(s): D72.829 - Elevated white blood cell count, unspecified Is this a current diagnosis for this admission?: Yes - Time Time Spent with patient: 25-34 minutes Medications reviewed and adjusted accordingly: Yes Anticipated discharge: SNF Within: Other - Inpatient Certification Based on my medical assessment, after consideration of the patient's comorbidities, presenting symptoms, or acuity I expect that the services needed warrant INPATIENT care.: Yes I certify that my determination is in accordance with my understanding of Medicare's requirements for reasonable and necessary INPATIENT services [42 CFR 412.3e].: Yes Medical Necessity: Significant Comorbidiites Make Outpatient Treatment Too Risky, Need Close Monitoring Due to Risk of Patient Decompensation, Need For IV Fluids, Need For Continuous Telemetry Monitoring, Need for Pain Control, Need for Surgery, Risk of Complication if Not Cared For in Hospital, Risk of Diagnosis Which Will Require Inpatient Eval/Care/Monitoring Post Hospital Care: D/C or Transfer Summary - Plan Summary Plan Summary: D/C Aspirin. Start on Eliquis 2.5 mg p.o bid x 35 days for hip surgery DVT prophylaxis therapy. Continue all other current medication management. Obtain CBC with diff, CMP in AM.
--- NOTE | 2019-03-30 19:01 | RADIOLOGY REPORT (SQ) ---
EXAM DESCRIPTION: NO CHG FLUORO; HIP RIGHT AP/LATERAL COMPLETED DATE/TIME: 03/30/2019 5:27 pm REASON FOR STUDY: RT HIP NAILING COMPARISON: None. FLUOROSCOPY TIME: 1.6 minutes 4 Images saved to PACS LIMITATIONS: None. PROCEDURE: Right hip nailing. FINDINGS: Images from fluoro document placement of a long medullary erlinda in the right femur and a mimi g cannulated screw in the femoral neck into the femoral head. IMPRESSION: Right hip nailing. Refer to operative note for further information. COMMENT: PQRS 6045F: Fluoroscopy time of the procedure is documented in the report. TECHNICAL DOCUMENTATION: JOB ID: [id number] [employer]- All Rights Reserved Reading location - IP/workstation name: [email or web address]
--- NOTE | 2019-03-30 19:01 | RADIOLOGY REPORT (SQ) ---
EXAM DESCRIPTION: NO CHG FLUORO; HIP RIGHT AP/LATERAL COMPLETED DATE/TIME: 03/30/2019 5:27 pm REASON FOR STUDY: RT HIP NAILING COMPARISON: None. FLUOROSCOPY TIME: 1.6 minutes 4 Images saved to PACS LIMITATIONS: None. PROCEDURE: Right hip nailing. FINDINGS: Images from fluoro document placement of a long medullary erlinda in the right femur and a mimi g cannulated screw in the femoral neck into the femoral head. IMPRESSION: Right hip nailing. Refer to operative note for further information. COMMENT: PQRS 6045F: Fluoroscopy time of the procedure is documented in the report. TECHNICAL DOCUMENTATION: JOB ID: [id number] [employer]- All Rights Reserved Reading location - IP/workstation name: [email or web address]
[2019-03-30] MEDS: CEFAZOLIN SODIUM 2 GM in DEXTROSE 5%-WATER 100 ML IV SCH (21:20)
[2019-03-31] MEDS: MORPHINE SULFATE 10 MG/ML INJ IV PRN ×6 (02:02→23:54)
[2019-03-31] MEDS: CEFAZOLIN SODIUM 2 GM in DEXTROSE 5%-WATER 100 ML IV SCH ×4 (02:02→21:23)
[2019-03-31 05:06] LABS: ALBUMIN 2.6 g/dL (3.5-5.0); ALKALINE PHOSPHATASE 84 U/L (38-126); ANION GAP 10 (5-19); ASPARTATE AMINO TRANSFERASE 24 U/L (14-36); BILIRUBIN,DIRECT 0.3 mg/dL (0.0-0.4); BILIRUBIN,TOTAL 0.3 mg/dL (0.2-1.3); BLOOD UREA NITROGEN 13 mg/dL (7-20); CALCIUM 7.9 mg/dL (8.4-10.2); CARBON DIOXIDE 19 mmol/L (22-30); CHLORIDE 110 mmol/L (98-107); GLUCOSE 89 mg/dL (75-110); TOTAL PROTEIN 5.8 g/dL (6.3-8.2)
[2019-03-31 05:14] LABS: ABSOLUTE BASOPHILS # (AUTO) 0.2 10^3/uL (0.0-0.2); ABSOLUTE LYMPHOCYTES (AUTO) 1.6 10^3/uL (0.5-4.7); ABSOLUTE MONOCYTES (AUTO) 1.1 10^3/uL (0.1-1.4); ABSOLUTE NEUT (AUTO) 11.8 10^3/uL (1.7-8.2); BASOPHILS % (AUTO) 1.3 % (0-2); EOSINOPHILS % (AUTO) 0.1 % (0-6); HEMATOCRIT 26.2 % (36.0-47.0); LYMPHOCYTES % (AUTO) 10.8 % (13-45); MEAN CORPUSCULAR HEMOGLOBIN 32.4 pg (27.0-33.4); MEAN CORPUSCULAR HGB CONC 33.9 g/dL (32.0-36.0); MEAN CORPUSCULAR VOLUME 96 fl (80-97); MONOCYTES % (AUTO) 7.7 % (3-13); PLATELET COUNT 244 10^3/uL (150-450); RED BLOOD COUNT 2.75 10^6/uL (3.72-5.28); SEGMENTED NEUTROPHILS % (AUTO) 80.1 % (42-78); TOTAL CELLS COUNTED % (AUTO) 100 %; WHITE BLOOD COUNT 14.7 10^3/uL (4.0-10.5)
[2019-03-31 05:18] LABS: HEMOGLOBIN 8.9 g/dL (12.0-15.5)
[2019-03-31] MEDS: PANTOPRAZOLE SODIUM 40 MG TABLET.DR PO SCH ×2 (07:09→17:05)
--- NOTE | 2019-03-31 08:02 | PDOC PROGRESS REPORT ---
Subjective Progress Note for:: 03/31/19 Reason For Visit: FALL AT HOME,RIGHT COMMUNITAID INTER TROCHAMTERIC 63-year-old white female now postop day 1 status post ORIF of a right intratrochanteric femur fracture. Patient is alert, oriented, and appropriate this morning. Physical Exam Vital Signs: Temp Pulse Resp BP Pulse Ox 36.6 C 98 17 164/76 H 93 03/30/19 22:15 03/31/19 02:00 03/30/19 22:15 03/30/19 22:15 03/30/19 22:15 Intake & Output 03/30/19 03/31/19 04/01/19 06:59 06:59 06:59 Intake Total 2220 2750 Output Total 250 955 Balance 1970 1795 Weight 54 kg 53.5 kg General appearance: PRESENT: no acute distress Head exam: PRESENT: normocephalic Respiratory exam: PRESENT: unlabored Cardiovascular exam: PRESENT: RRR Pulses: PRESENT: +1 pedal pulses bilateral Vascular exam: PRESENT: normal capillary refill GI/Abdominal exam: PRESENT: soft Rectal exam: PRESENT: deferred Extremities exam: PRESENT: other - Right lower extremity op sites x3 are clean dry and intact. Leg lengths are equal. Distal neurovascular examination is intact. Results Laboratory Results: 03/31/19 03:54 03/31/19 03:54 03/31/19 03/31/19 03:54 03:54 WBC 14.7 H RBC 2.75 L Hgb 8.9 L D Hct 26.2 L MCV 96 MCH 32.4 MCHC 33.9 RDW 14.0 Plt Count 244 Seg Neutrophils % 80.1 H Sodium 138.7 Potassium 4.0 Chloride 110 H Carbon Dioxide 19 L Anion Gap 10 BUN 13 Creatinine 1.32 H Est GFR ( Amer) 50 L Glucose 89 Calcium 7.9 L Total Bilirubin 0.3 AST 24 Alkaline Phosphatase 84 Total Protein 5.8 L Albumin 2.6 L Impressions: Chest X-Ray 03/29/19 15:01 IMPRESSION: NO ACUTE RADIOGRAPHIC FINDING IN THE CHEST. Fluoroscopy 03/30/19 00:00 IMPRESSION: Right hip nailing. Refer to operative note for further information. Hip/Pelvis X-Ray 03/30/19 00:00 IMPRESSION: Right hip nailing. Refer to operative note for further information. Status: Imported from PACS Assessment & Plan - Diagnosis (1) Fracture, intertrochanteric, right femur Qualifiers: Encounter type: initial encounter Fracture type: closed Fracture alignment: displaced Qualified Code(s): S72.141A - Displaced intertrochanteric fracture of right femur, initial encounter for closed fracture Is this a current diagnosis for this admission?: Yes Plan: Mobilized with physical therapy and weightbearing as tolerated basis. Anticipate the need for detention facility placement. - Time Time Spent with patient: 15-24 minutes Anticipated discharge: SNF Within: within 48 hours
[2019-03-31] MEDS ORDERED: ASPIRIN 325 MG TABLET PO SCH (10:00)
[2019-03-31] MEDS: LISINOPRIL 10 MG TABLET PO SCH (10:26)
[2019-03-31] MEDS: NORMAL SALINE 1000 ML 1,000 ML IV PRN (10:29)
[2019-03-31] MEDS: APIXABAN 2.5 MG TABLET PO SCH ×2 (11:38→17:04)
--- NOTE | 2019-03-31 16:46 | PDOC PROGRESS REPORT ---
Subjective Progress Note for:: 03/31/19 Subjective:: Patient is day #1 post ORIF for left hip fracture. No chest pain or difficulty with breathing. No reported fever or chills. No nausea, vomiting, or abdominal pain. Reason For Visit: FALL AT HOME,RIGHT COMMUNITAID INTER TROCHAMTERIC Physical Exam Vital Signs: Temp Pulse Resp BP Pulse Ox 98.1 F 81 16 125/70 94 03/31/19 11:57 03/31/19 14:00 03/31/19 11:57 03/31/19 11:57 03/31/19 11:57 Intake & Output 03/30/19 03/31/19 04/01/19 06:59 06:59 06:59 Intake Total 2220 2750 200 Output Total 250 955 Balance 1970 1795 200 Weight 54 kg 53.5 kg Physical Exam: General appearance: PRESENT: mild distress - due to pain. Head exam: PRESENT: atraumatic, normocephalic Eye exam: PRESENT: conjunctiva pink. ABSENT: pallor, scleral icterus Ear exam: PRESENT: normal external ear exam Mouth exam: PRESENT: moist Respiratory exam: PRESENT: clear to auscultation dee Cardiovascular exam: PRESENT: RRR. ABSENT: diastolic murmur, rubs, systolic murmur GI/Abdominal exam: PRESENT: normal bowel sounds, soft. ABSENT: distended, guarding, mass, organomegaly, rebound, tenderness Extremities exam: PRESENT: tenderness - right hip site of fracture and surgery. ABSENT: pedal edema Musculoskeletal exam: PRESENT: tenderness - right hip site of fracture and surgery Neurological exam: PRESENT: alert, awake Psychiatric exam: PRESENT: appropriate affect, normal mood. ABSENT: homicidal ideation, suicidal ideation Skin exam: PRESENT: dry, warm, other - surgical site dressing satisfactory. Results Laboratory Results: 03/31/19 03:54 03/31/19 03:54 03/31/19 03/31/19 03:54 03:54 WBC 14.7 H RBC 2.75 L Hgb 8.9 L D Hct 26.2 L MCV 96 MCH 32.4 MCHC 33.9 RDW 14.0 Plt Count 244 Seg Neutrophils % 80.1 H Sodium 138.7 Potassium 4.0 Chloride 110 H Carbon Dioxide 19 L Anion Gap 10 BUN 13 Creatinine 1.32 H Est GFR ( Amer) 50 L Glucose 89 Calcium 7.9 L Total Bilirubin 0.3 AST 24 Alkaline Phosphatase 84 Total Protein 5.8 L Albumin 2.6 L Impressions: Chest X-Ray 03/29/19 15:01 IMPRESSION: NO ACUTE RADIOGRAPHIC FINDING IN THE CHEST. Fluoroscopy 03/30/19 00:00 IMPRESSION: Right hip nailing. Refer to operative note for further information. Hip/Pelvis X-Ray 03/30/19 00:00 IMPRESSION: Right hip nailing. Refer to operative note for further information. Assessment & Plan - Diagnosis (1) Fall Qualifiers: Encounter type: initial encounter Qualified Code(s): W19.XXXA - Unspecified fall, initial encounter Is this a current diagnosis for this admission?: Yes (2) Fracture, intertrochanteric, right femur Qualifiers: Encounter type: initial encounter Fracture type: closed Fracture alignment: displaced Qualified Code(s): S72.141A - Displaced intertrochanteric fracture of right femur, initial encounter for closed fracture Is this a current diagnosis for this admission?: Yes (3) Hypertension Qualifiers: Hypertension type: essential hypertension Qualified Code(s): I10 - Essential (primary) hypertension Is this a current diagnosis for this admission?: Yes (4) Leukocytosis, unspecified Qualifiers: Leukocytosis type: unspecified Qualified Code(s): D72.829 - Elevated white blood cell count, unspecified Is this a current diagnosis for this admission?: Yes - Time Time Spent with patient: 35 or more minutes Level of Care: IMCU Medications reviewed and adjusted accordingly: Yes Anticipated discharge: SNF Within: Other - Inpatient Certification Based on my medical assessment, after consideration of the patient's comorbidities, presenting symptoms, or acuity I expect that the services needed warrant INPATIENT care.: Yes I certify that my determination is in accordance with my understanding of Medicare's requirements for reasonable and necessary INPATIENT services [42 CFR 412.3e].: Yes Medical Necessity: Significant Comorbidiites Make Outpatient Treatment Too Risky, Need Close Monitoring Due to Risk of Patient Decompensation, Need For IV Fluids, Need For Continuous Telemetry Monitoring, Need for IV Antibiotics, Risk of Complication if Not Cared For in Hospital, Risk of Diagnosis Which Will Require Inpatient Eval/Care/Monitoring Post Hospital Care: D/C [facility] Documentation, D/C or Transfer Summary - Plan Summary Plan Summary: Continue current medication management. Obtain CBC with diff, CMP in AM.
[2019-04-01] MEDS: CEFAZOLIN SODIUM 2 GM in DEXTROSE 5%-WATER 100 ML IV SCH ×4 (02:52→21:52)
[2019-04-01] MEDS: MORPHINE SULFATE 10 MG/ML INJ IV PRN ×6 (02:53→21:51)
[2019-04-01] MEDS: NORMAL SALINE 1000 ML 1,000 ML IV PRN (02:53)
[2019-04-01 05:56] LABS: ABSOLUTE BASOPHILS # (AUTO) 0.1 10^3/uL (0.0-0.2); ABSOLUTE EOSINOPHILS # (AUTO) 0.1 10^3/uL (0.0-0.6); ABSOLUTE LYMPHOCYTES (AUTO) 1.5 10^3/uL (0.5-4.7); ABSOLUTE MONOCYTES (AUTO) 1.2 10^3/uL (0.1-1.4); ABSOLUTE NEUT (AUTO) 10.4 10^3/uL (1.7-8.2); EOSINOPHILS % (AUTO) 0.8 % (0-6); HEMATOCRIT 27.7 % (36.0-47.0); HEMOGLOBIN 9.2 g/dL (12.0-15.5); MEAN CORPUSCULAR HEMOGLOBIN 31.6 pg (27.0-33.4); MEAN CORPUSCULAR HGB CONC 33.2 g/dL (32.0-36.0); MEAN CORPUSCULAR VOLUME 95 fl (80-97); MONOCYTES % (AUTO) 8.9 % (3-13); PLATELET COUNT 308 10^3/uL (150-450); RED BLOOD COUNT 2.91 10^6/uL (3.72-5.28); RED CELL DISTRIBUTION WIDTH 13.9 % (11.5-14.0); SEGMENTED NEUTROPHILS % (AUTO) 78.3 % (42-78); TOTAL CELLS COUNTED % (AUTO) 100 %; WHITE BLOOD COUNT 13.3 10^3/uL (4.0-10.5)
[2019-04-01] MEDS: PANTOPRAZOLE SODIUM 40 MG TABLET.DR PO SCH ×2 (06:13→16:12)
[2019-04-01 06:14] LABS: ALBUMIN 2.9 g/dL (3.5-5.0); ALKALINE PHOSPHATASE 92 U/L (38-126); ANION GAP 10 (5-19); ASPARTATE AMINO TRANSFERASE 21 U/L (14-36); BILIRUBIN,DIRECT 0.3 mg/dL (0.0-0.4); BILIRUBIN,TOTAL 0.3 mg/dL (0.2-1.3); BLOOD UREA NITROGEN 13 mg/dL (7-20); CALCIUM 8.3 mg/dL (8.4-10.2); CARBON DIOXIDE 19 mmol/L (22-30); CHLORIDE 108 mmol/L (98-107); GLUCOSE 101 mg/dL (75-110); POTASSIUM 3.8 mmol/L (3.6-5.0); TOTAL PROTEIN 6.6 g/dL (6.3-8.2)
--- NOTE | 2019-04-01 06:40 | PDOC PROGRESS REPORT ---
Subjective Progress Note for:: 04/01/19 Reason For Visit: FALL AT HOME,RIGHT COMMUNITAID INTER TROCHAMTERIC 63-year-old female now postop day 2 status post ORIF of a right intratrochanteric femur fracture. Limited progress with physical therapy yesterday. Physical Exam Vital Signs: Temp Pulse Resp BP Pulse Ox 37.1 C 88 18 151/82 H 100 03/31/19 23:00 04/01/19 02:00 03/31/19 23:00 03/31/19 23:00 03/31/19 23:00 Intake & Output 03/30/19 03/31/19 04/01/19 06:59 06:59 06:59 Intake Total 2220 2750 2120 Output Total 250 955 700 Balance 1970 1795 1420 Weight 54 kg 53.5 kg 57.3 kg Musculoskeletal exam: PRESENT: other - Right lower extremity OpSite dressings are clean dry and intact. Leg lengths are equal. Distal neurovascular examination is intact. Results Laboratory Results: 04/01/19 05:28 04/01/19 05:28 04/01/19 04/01/19 05:28 05:28 WBC 13.3 H RBC 2.91 L Hgb 9.2 L Hct 27.7 L MCV 95 MCH 31.6 MCHC 33.2 RDW 13.9 Plt Count 308 Seg Neutrophils % 78.3 H Sodium 137.4 Potassium 3.8 Chloride 108 H Carbon Dioxide 19 L Anion Gap 10 BUN 13 Creatinine 1.46 H Est GFR ( Amer) 44 L Glucose 101 Calcium 8.3 L Total Bilirubin 0.3 AST 21 Alkaline Phosphatase 92 Total Protein 6.6 Albumin 2.9 L Impressions: Chest X-Ray 03/29/19 15:01 IMPRESSION: NO ACUTE RADIOGRAPHIC FINDING IN THE CHEST. Fluoroscopy 03/30/19 00:00 IMPRESSION: Right hip nailing. Refer to operative note for further information. Hip/Pelvis X-Ray 03/30/19 00:00 IMPRESSION: Right hip nailing. Refer to operative note for further information. Status: Imported from PACS Assessment & Plan - Diagnosis (1) Fracture, intertrochanteric, right femur Qualifiers: Encounter type: initial encounter Fracture type: closed Fracture alignment: displaced Qualified Code(s): S72.141A - Displaced intertrochanteric fracture of right femur, initial encounter for closed fracture Is this a current diagnosis for this admission?: Yes Plan: Mobilize with physical therapy and weightbearing as tolerated basis. Anticipate the need for residential facility placement. - Time Time Spent with patient: Less than 15 minutes
[2019-04-01] MEDS: LISINOPRIL 10 MG TABLET PO SCH (09:16)
[2019-04-01] MEDS: APIXABAN 2.5 MG TABLET PO SCH ×2 (09:16→18:08)
--- NOTE | 2019-04-01 09:32 | PDOC PROGRESS REPORT ---
Subjective Progress Note for:: 04/01/19 Subjective:: Patient have a right femur fracture status post ORIF Patient having very limited progress with the physical therapy yesterday Patient's denied any chest pain no short of breath No abdominal pain Patient is currently lives with her son discussed with the patient is preferred to go to the rehab facilities Reason For Visit: FALL AT HOME,RIGHT COMMUNITAID INTER TROCHAMTERIC Physical Exam Vital Signs: Temp Pulse Resp BP Pulse Ox 98.8 F 84 18 151/82 H 100 03/31/19 23:00 04/01/19 07:00 03/31/19 23:00 03/31/19 23:00 03/31/19 23:00 Intake & Output 03/31/19 04/01/19 04/02/19 06:59 06:59 06:59 Intake Total 2750 2640 Output Total 955 700 Balance 1795 1940 Weight 53.5 kg 57.3 kg General appearance: PRESENT: no acute distress, well-developed, well-nourished Head exam: PRESENT: atraumatic, normocephalic Eye exam: PRESENT: conjunctiva pink, EOMI, PERRLA. ABSENT: scleral icterus Ear exam: PRESENT: normal external ear exam Mouth exam: PRESENT: moist, tongue midline Neck exam: PRESENT: full ROM. ABSENT: carotid bruit, JVD, lymphadenopathy, thyromegaly Respiratory exam: PRESENT: clear to auscultation dee Cardiovascular exam: PRESENT: RRR. ABSENT: diastolic murmur, rubs, systolic murmur Pulses: PRESENT: normal dorsalis pedis pul, +2 pedal pulses bilateral Vascular exam: PRESENT: normal capillary refill GI/Abdominal exam: PRESENT: normal bowel sounds, soft. ABSENT: distended, guarding, mass, organolmegaly, rebound, tenderness Rectal exam: PRESENT: deferred Neurological exam: PRESENT: alert, awake, oriented to person, oriented to place, oriented to time, oriented to situation, CN II-XII grossly intact. ABSENT: motor sensory deficit Psychiatric exam: PRESENT: appropriate affect, normal mood. ABSENT: homicidal ideation, suicidal ideation Skin exam: PRESENT: dry, intact, warm. ABSENT: cyanosis, rash Results Laboratory Results: 04/01/19 05:28 04/01/19 05:28 04/01/19 04/01/19 05:28 05:28 WBC 13.3 H RBC 2.91 L Hgb 9.2 L Hct 27.7 L MCV 95 MCH 31.6 MCHC 33.2 RDW 13.9 Plt Count 308 Seg Neutrophils % 78.3 H Sodium 137.4 Potassium 3.8 Chloride 108 H Carbon Dioxide 19 L Anion Gap 10 BUN 13 Creatinine 1.46 H Est GFR ( Amer) 44 L Glucose 101 Calcium 8.3 L Total Bilirubin 0.3 AST 21 Alkaline Phosphatase 92 Total Protein 6.6 Albumin 2.9 L Impressions: Chest X-Ray 03/29/19 15:01 IMPRESSION: NO ACUTE RADIOGRAPHIC FINDING IN THE CHEST. Fluoroscopy 03/30/19 00:00 IMPRESSION: Right hip nailing. Refer to operative note for further information. Hip/Pelvis X-Ray 03/30/19 00:00 IMPRESSION: Right hip nailing. Refer to operative note for further information. Assessment & Plan - Diagnosis (1) Fall Qualifiers: Encounter type: initial encounter Qualified Code(s): W19.XXXA - Unspecified fall, initial encounter Is this a current diagnosis for this admission?: Yes (2) Fracture, intertrochanteric, right femur Qualifiers: Encounter type: initial encounter Fracture type: closed Fracture alignment: displaced Qualified Code(s): S72.141A - Displaced intertrochanteric fracture of right femur, initial encounter for closed fracture Is this a current diagnosis for this admission?: Yes (3) Hypertension Qualifiers: Hypertension type: essential hypertension Qualified Code(s): I10 - Essential (primary) hypertension Is this a current diagnosis for this admission?: Yes (4) Leukocytosis, unspecified Qualifiers: Leukocytosis type: unspecified Qualified Code(s): D72.829 - Elevated white blood cell count, unspecified Is this a current diagnosis for this admission?: Yes - Time Time Spent with patient: 15-24 minutes Level of Care: TELE Medications reviewed and adjusted accordingly: Yes Anticipated discharge: SNF Within: within 24 hours - Plan Summary Plan Summary: Encourage the patient about physical therapy We will check the patient's UA
[2019-04-01] MEDS ORDERED: NORMAL SALINE 1000 ML 1,000 ML IV PRN (14:45)
[2019-04-02] MEDS: CEFAZOLIN SODIUM 2 GM in DEXTROSE 5%-WATER 100 ML IV SCH ×3 (02:04→16:53)
[2019-04-02] MEDS: MORPHINE SULFATE 10 MG/ML INJ IV PRN ×4 (02:04→14:44)
[2019-04-02] MEDS: PANTOPRAZOLE SODIUM 40 MG TABLET.DR PO SCH ×2 (05:06→16:53)
[2019-04-02 05:32] LABS: ABSOLUTE BASOPHILS # (AUTO) 0.1 10^3/uL (0.0-0.2); ABSOLUTE EOSINOPHILS # (AUTO) 0.1 10^3/uL (0.0-0.6); ABSOLUTE LYMPHOCYTES (AUTO) 0.9 10^3/uL (0.5-4.7); ABSOLUTE MONOCYTES (AUTO) 1.2 10^3/uL (0.1-1.4); ABSOLUTE NEUT (AUTO) 8.2 10^3/uL (1.7-8.2); EOSINOPHILS % (AUTO) 0.9 % (0-6); HEMATOCRIT 29.2 % (36.0-47.0); HEMOGLOBIN 9.9 g/dL (12.0-15.5); LYMPHOCYTES % (AUTO) 8.7 % (13-45); MEAN CORPUSCULAR HEMOGLOBIN 32.1 pg (27.0-33.4); MEAN CORPUSCULAR HGB CONC 33.7 g/dL (32.0-36.0); MEAN CORPUSCULAR VOLUME 95 fl (80-97); MONOCYTES % (AUTO) 11.4 % (3-13); PLATELET COUNT 326 10^3/uL (150-450); RED BLOOD COUNT 3.08 10^6/uL (3.72-5.28); RED CELL DISTRIBUTION WIDTH 13.7 % (11.5-14.0); TOTAL CELLS COUNTED % (AUTO) 100 %; WHITE BLOOD COUNT 10.5 10^3/uL (4.0-10.5)
[2019-04-02 05:37] LABS: APPEARANCE,URINE CLEAR; BILIRUBIN,URINE NEGATIVE (NEGATIVE); COLOR,URINE YELLOW; GLUCOSE, URINE NEGATIVE (NEGATIVE); KETONES,URINE NEGATIVE (NEGATIVE); LEUKOCYTE ESTERASE,URINE NEGATIVE (NEGATIVE); NITRITE,URINE NEGATIVE (NEGATIVE); PROTEIN,URINE 30 mg/dL (NEGATIVE); URINE SPECIFIC GRAVITY 1.014; UROBILINOGEN,URINE NEGATIVE mg/dL (<2.0)
[2019-04-02 05:50] LABS: ANION GAP 12 (5-19); BLOOD UREA NITROGEN 12 mg/dL (7-20); CALCIUM 8.4 mg/dL (8.4-10.2); CARBON DIOXIDE 17 mmol/L (22-30); CHLORIDE 109 mmol/L (98-107); GLUCOSE 99 mg/dL (75-110); POTASSIUM 3.8 mmol/L (3.6-5.0)
[2019-04-02] MEDS: LISINOPRIL 10 MG TABLET PO SCH (09:47)
[2019-04-02] MEDS: APIXABAN 2.5 MG TABLET PO SCH ×2 (09:48→17:30)
[2019-04-02] MEDS ORDERED: OXYCODONE-ACETAMINOPHEN 5-325 MG TABLET PO PRN (11:03)
--- NOTE | 2019-04-02 11:03 | PDOC PROGRESS REPORT ---
Subjective Progress Note for:: 04/02/19 Subjective:: Patient is currently doing same Patient is diet participates in physical therapy but just sitting in the chair I reviewed my record and the office the last time I saw the patient is more than 2 years back and only a few times I saw the patient with significant history of the rheumatoid arthritis chronic pain syndrome substance abuse and patient is never follow-up for that referred to the powdered metal supervisor and pain management According to the patient She did not see any Dr. since last 2 years I believe patient has significant pain issues and the patient's probably at this point will switch to the IV morphine to the p.o. pain medications We will try to contact the patient's daughter patients needs to follow-up with the powdered metal supervisor and other pain management Patient's denied any chest pain no short of breath No abdominal pain Reason For Visit: FALL AT HOME,RIGHT COMMUNITAID INTER TROCHAMTERIC Physical Exam Vital Signs: Temp Pulse Resp BP Pulse Ox 98.0 F 89 16 145/85 H 100 04/02/19 07:47 04/02/19 07:47 04/02/19 07:47 04/02/19 07:47 04/02/19 07:47 Intake & Output 04/01/19 04/02/19 04/03/19 06:59 06:59 06:59 Intake Total 2640 885 Output Total 700 500 Balance 1940 385 Weight 57.3 kg 58.9 kg General appearance: PRESENT: no acute distress, well-developed, well-nourished Head exam: PRESENT: atraumatic, normocephalic Eye exam: PRESENT: conjunctiva pink, EOMI, PERRLA. ABSENT: scleral icterus Ear exam: PRESENT: normal external ear exam Mouth exam: PRESENT: moist, tongue midline Neck exam: PRESENT: full ROM. ABSENT: carotid bruit, JVD, lymphadenopathy, thyromegaly Respiratory exam: PRESENT: clear to auscultation dee Cardiovascular exam: PRESENT: RRR. ABSENT: diastolic murmur, rubs, systolic murmur Pulses: PRESENT: normal dorsalis pedis pul, +2 pedal pulses bilateral Vascular exam: PRESENT: normal capillary refill GI/Abdominal exam: PRESENT: normal bowel sounds, soft. ABSENT: distended, guarding, mass, organolmegaly, rebound, tenderness Rectal exam: PRESENT: deferred Neurological exam: PRESENT: alert, awake, oriented to person, oriented to place, oriented to time, oriented to situation, CN II-XII grossly intact. ABSENT: motor sensory deficit Psychiatric exam: PRESENT: appropriate affect, normal mood. ABSENT: homicidal ideation, suicidal ideation Skin exam: PRESENT: dry, intact, warm. ABSENT: cyanosis, rash Results Laboratory Results: 04/02/19 04:57 04/02/19 04:57 04/02/19 04/02/19 04/02/19 04:57 04:57 05:13 WBC 10.5 RBC 3.08 L Hgb 9.9 L Hct 29.2 L MCV 95 MCH 32.1 MCHC 33.7 RDW 13.7 Plt Count 326 Seg Neutrophils % 78.0 Sodium 137.8 Potassium 3.8 Chloride 109 H Carbon Dioxide 17 L Anion Gap 12 BUN 12 Creatinine 1.30 H Est GFR ( Amer) 50 L Glucose 99 Calcium 8.4 Urine Color YELLOW Urine Appearance CLEAR Urine pH 7.0 Ur Specific [place] 1.014 Urine Protein 30 H Urine Glucose (UA) NEGATIVE Urine Ketones NEGATIVE Urine Blood SMALL H Urine Nitrite NEGATIVE Ur Leukocyte Esterase NEGATIVE Urine WBC (Auto) 0 Urine RBC (Auto) 0 Impressions: Chest X-Ray 03/29/19 15:01 IMPRESSION: NO ACUTE RADIOGRAPHIC FINDING IN THE CHEST. Fluoroscopy 03/30/19 00:00 IMPRESSION: Right hip nailing. Refer to operative note for further i nformation. Hip/Pelvis X-Ray 03/30/19 00:00 IMPRESSION: Right hip nailing. Refer to operative note for further information. Assessment & Plan - Diagnosis (1) Fall Qualifiers: Encounter type: initial encounter Qualified Code(s): W19.XXXA - Unspecified fall, initial encounter Is this a current diagnosis for this admission?: Yes (2) Fracture, intertrochanteric, right femur Qualifiers: Encounter type: initial encounter Fracture type: closed Fracture alignment: displaced Qualified Code(s): S72.141A - Displaced intertrochanteric fracture of right femur, initial encounter for closed fracture Is this a current diagnosis for this admission?: Yes Plan: Status post surgery (3) Hypertension Qualifiers: Hypertension type: essential hypertension Qualified Code(s): I10 - Ess ential (primary) hypertension Is this a current diagnosis for this admission?: Yes (4) Leukocytosis, unspecified Qualifiers: Leukocytosis type: unspecified Qualified Code(s): D72.829 - Elevated white blood cell count, unspecified Is this a current diagnosis for this admission?: Yes (5) Rheumatoid arthritis Qualifiers: Rheumatoid arthritis location: multiple sites Is this a current diagnosis for this admission?: Yes Plan: Patient is never follow-up with the powdered metal supervisor as per patient never seen his doctors more than 2 years patient is to follow outpatient powdered metal supervisor for further continues care and evaluations (6) Chronic pain syndrome Is this a current diagnosis for this admission?: Yes Plan: Patient also need to see a pain management (7) Noncompliance Is this a current diagnosis for this admission?: Yes Plan: Patients did not follow more than 2 years do not take any medications - Time Time Spent with patient: 15-24 minutes Level of Care: TELE Medications reviewed and adjusted accordingly: Yes Anticipated discharge: SNF Within: when bed available - Plan Summary Plan Summary: We will switch to the IV morphine to the p.o. pain medications Try to contact the daughters regarding the patient's current conditions and the patient is very noncompliance
--- NOTE | 2019-04-02 13:03 | PDOC PROGRESS REPORT ---
Subjective Progress Note for:: 04/02/19 Subjective:: Patient sitting at bedside chair. Pain currently controlled. No issues overnight. Still requires maximal assistance and physical therapy. Denies chest pain or shortness of breath. Reason For Visit: FALL AT HOME,RIGHT COMMUNITAID INTER TROCHAMTERIC Physical Exam Vital Signs: Temp Pulse Resp BP Pulse Ox 98.0 F 89 16 145/85 H 100 04/02/19 07:47 04/02/19 07:47 04/02/19 07:47 04/02/19 07:47 04/02/19 07:47 Intake & Output 04/01/19 04/02/19 04/03/19 06:59 06:59 06:59 Intake Total 2640 885 Output Total 700 500 Balance 1940 385 Weight 57.3 kg 58.9 kg Musculoskeletal exam: PRESENT: other - Right hip: Dressing clean/dry/intact no erythema or drainage. Moderate thigh swelling without change, intact p lantarflexion/dorsiflexion. No sensory deficits. No calf tenderness. Results Laboratory Results: 04/02/19 04:57 04/02/19 04:57 04/02/19 04/02/19 04/02/19 04:57 04:57 05:13 WBC 10.5 RBC 3.08 L Hgb 9.9 L Hct 29.2 L MCV 95 MCH 32.1 MCHC 33.7 RDW 13.7 Plt Count 326 Seg Neutrophils % 78.0 Sodium 137.8 Potassium 3.8 Chloride 109 H Carbon Dioxide 17 L Anion Gap 12 BUN 12 Creatinine 1.30 H Est GFR ( Amer) 50 L Glucose 99 Calcium 8.4 Urine Color YELLOW Urine Appearance CLEAR Urine pH 7.0 Ur Specific [place] 1.014 Urine Protein 30 H Urine Glucose (UA) NEGATIVE Urine Ketones NEGATIVE Urine Blood SMALL H Urine Nitrite NEGATIVE Ur Leukocyte Esterase NEGATIVE Urine WBC (Auto) 0 Urine RBC (Auto) 0 Impressions: Chest X-Ray 03/29/19 15:01 IMPRESSION: NO ACUTE RADIOGRAPHIC FINDING IN THE CHEST. Fluoroscopy 03/30/19 00:00 IMPRESSION: Right hip nailing. Refer to operative note for further information. Hip/Pelvis X-Ray 03/30/19 00:00 IMPRESSION: Right hip nailing. Refer to operative note for further information. Assessment & Plan - Diagnosis (1) Fracture, intertrochanteric, right femur Qualifiers: Encounter type: initial encounter Fracture type: closed Fracture alignment: displaced Qualified Code(s): S72.141A - Displaced intertrochanteric fracture of right femur, initial encounter for closed fracture Is this a current diagnosis for this admission?: Yes Plan: Postop day #3 status post right hip cephalo-medullary nail 1. Physical therapy flatfoot weightbearing 2. DVT Prophylaxis: Xarelto 3. Pain control 4. Discharge planning patient will require assisted facility when bed available - Time Time Spent with patient: Less than 15 minutes
--- NOTE | 2019-04-02 13:05 | PDOC TRANSFER SUMMARY ---
Impression - Admit/DC Date/PCP Admission Date/Primary Care Provider: 03/29/19 17:13 NASIM MIDDLETON MD Discharge Date: 04/02/19 - Discharge Diagnosis (1) Fall Is this a current diagnosis for this admission?: Yes (2) Fracture, intertrochanteric, right femur Is this a current diagnosis for this admission?: Yes (3) Hypertension Is this a current diagnosis for this admission?: Yes (4) Leukocytosis, unspecified Is this a current diagnosis for this admission?: Yes (5) Rheumatoid arthritis Is this a current diagnosis for this admission?: Yes (6) Chronic pain syndrome Is this a current diagnosis for this admission?: Yes (7) Noncompliance Is this a current diagnosis for this admission?: Yes - Additional Information Resuscitation Status: Full Code Discharge Diet: Regular Discharge Activity: Activity As Tolerated Referrals: LONG TALBERT DO [ACTIVE STAFF] - Prescriptions: Apixaban [Eliquis 2.5 mg Tablet] 2.5 mg PO BID #60 tablet Oxycodone HCl/Acetaminophen [Percocet 5-325 mg Tablet] 1 tab PO Q6 PRN #15 tab PRN Reason: Lisinopril [Prinivil 10 mg Tablet] 20 mg PO DAILY #30 tablet Home Medications: Esomeprazole Mag Trihydrate [Nexium] 40 mg PO QHS 03/30/19 Apixaban [Eliquis 2.5 mg Tablet] 2.5 mg PO BID #60 tablet 04/02/19 Lisinopril [Prinivil 10 mg Tablet] 20 mg PO DAILY #30 tablet 04/02/19 Oxycodone HCl/Acetaminophen [Percocet 5-325 mg Tablet] 1 tab PO Q6 PRN #15 tab 04/02/19 History of Present Illiness History of Present Illness: DARIA FITZGERALD is a 63 year old female 63-year-old female's with a very noncompliance not seen her doctor for 2 years according to the patient with a history of the rheumatoid arthritis chronic pain syndrome osteoarthritis osteoporosis probably came with the fall and a right femur fracture Hospital Course Hospital Course: This 63-year-old female with a history of rheumatoid arthritis not seen the doctor for 2 years history of the osteoarthritis hypertension's hyperlipidemia chronic pain syndromes came to the emergency department with the fall and the right hip pain diagnosed with the right femur fracture Patient seen by Dr. Taylor underwent for ORIF Patient otherwise other problem was all stable patient is required IV morphine switch to the p.o. Percocet patient have always challenge about the pain medication due to the longstanding history of the pain syndromes and rheumatoid arthritis Patient's creatinine is 1.3 patient hemoglobin was 9.2 His white count is all stable discuss with the Dr. Taylor and suggest to patients can be discharged to the rehab facility and follow-up with him as outpatient Patient is otherwise still have a very limited physical therapy involvement I think patients needs to go to the definitely rehab for more physical therapy Readjust the pain medication according to the pain level Patient is to follow outpatients rheumatology and pain management Patients need outpatients bone density Discussed with the social work lecturer try to contact the daughter and need to be explained the daughter to compliance to follow-up and compliance to take the medications Patient's needs to be repeat the CBC and Chem-7 in 1 week Consider fall precautions currently on Eliquis for the hip surgery prophylaxis Fall precautions Physical Exam Vital Signs: Temp Pulse Resp BP Pulse Ox 98.0 F 89 16 145/85 H 100 04/02/19 07:47 04/02/19 07:47 04/02/19 07:47 04/02/19 07:47 04/02/19 07:47 Intake & Output 04/01/19 04/02/19 04/03/19 06:59 06:59 06:59 Intake Total 2640 885 Output Total 700 500 Balance 1940 385 Weight 57.3 kg 58.9 kg General appearance: PRESENT: no acute distress, well-developed, well-nourished Head exam: PRESENT: atraumatic, normocephalic Eye exam: PRESENT: conjunctiva pink, EOMI, PERRLA. ABSENT: scleral icterus Ear exam: PRESENT: normal external ear exam Mouth exam: PRESENT: moist, tongue midline Neck exam: ABSENT: carotid bruit, JVD, lymphadenopathy, thyromegaly Respiratory exam: PRESENT: clear to auscultation dee. ABSENT: rales, rhonchi, wheezes Cardiovascular exam: PRESENT: RRR. ABSENT: diastolic murmur, rubs, systolic murmur Pulses: PRESENT: normal dorsalis pedis pul Vascular exam: PRESENT: normal capillary refill GI/Abdominal exam: PRESENT: normal bowel sounds, soft. ABSENT: distended, guarding, mass, organolmegaly, rebound, tenderness Rectal exam: PRESENT: deferred Extremities exam: PRESENT: full ROM. ABSENT: calf tenderness, clubbing, pedal edema Neurological exam: PRESENT: alert, awake, oriented to person, oriented to place, oriented to time, oriented to situation, CN II-XII grossly intact. ABSENT: motor sensory deficit Psychiatric exam: PRESENT: appropriate affect, normal mood. ABSENT: homicidal ideation, suicidal ideation Skin exam: PRESENT: dry, intact, warm. ABSENT: cyanosis, rash Results Laboratory Results: WBC 10.5 10^3/uL (4.0-10.5) 04/02/19 04:57 RBC 3.08 10^6/uL (3.72-5.28) L 04/02/19 04:57 Hgb 9.9 g/dL (12.0-15.5) L 04/02/19 04:57 Hct 29.2 % (36.0-47.0) L 04/02/19 04:57 MCV 95 fl (80-97) 04/02/19 04:57 MCH 32.1 pg (27.0-33.4) 04/02/19 04:57 MCHC 33.7 g/dL (32.0-36.0) 04/02/19 04:57 RDW 13.7 % (11.5-14.0) 04/02/19 04:57 Plt Count 326 10^3/uL (150-450) 04/02/19 04:57 Lymph % (Auto) 8.7 % (13-45) L 04/02/19 04:57 [place] % (Auto) 11.4 % (3-13) 04/02/19 04:57 Eos % (Auto) 0.9 % (0-6) 04/02/19 04:57 Baso % (Auto) 1.0 % (0-2) 04/02/19 04:57 Absolute Neuts (auto) 8.2 10^3/uL (1.7-8.2) 04/02/19 04:57 Absolute Lymphs (auto) 0.9 10^3/uL (0.5-4.7) 04/02/19 04:57 Absolute Monos (auto) 1.2 10^3/uL (0.1-1.4) 04/02/19 04:57 Absolute Eos (auto) 0.1 10^3/uL (0.0-0.6) 04/02/19 04:57 Absolute Basos (auto) 0.1 10^3/uL (0.0-0.2) 04/02/19 04:57 Total Counted 100 03/30/19 04:37 Seg Neutrophils % 78.0 % (42-78) 04/02/19 04:57 Seg Neuts % (Manual) 91 % (42-78) H 03/30/19 04:37 Band Neutrophils % 1 % (3-5) L 03/30/19 04:37 Lymphocytes % (Manual) 5 % (13-45) L 03/30/19 04:37 Monocytes % (Manual) 2 % (3-13) L 03/30/19 04:37 Eosinophils % (Manual) 0 % (0-6) 03/30/19 04:37 Basophils % (Manual) 1 % (0-2) 03/30/19 04:37 Abs Neuts (Manual) 22.0 10^3/uL (1.7-8.2) H 03/30/19 04:37 Abs Lymphs (Manual) 1.2 10^3/uL (0.5-4.7) 03/30/19 04:37 Abs Monocytes (Manual) 0.5 10^3/uL (0.1-1.4) 03/30/19 04:37 Absolute Eos (Manual) 0.0 10^3/uL (0.0-0.6) 03/30/19 04:37 Abs Basophils (Manual) 0.2 10^3/uL (0.0-0.2) 03/30/19 04:37 Large Platelets PRESENT 03/29/19 15:00 Platelet Comment ADEQUATE 03/30/19 04:37 RBC Morph Comment NORMO-CYTIC/CHROMIC 03/30/19 04:37 PT 13.2 SEC (11.4-15.4) 03/29/19 15:00 INR 1.00 03/29/19 15:00 APTT 27.9 SEC (23.5-35.8) 03/29/19 15:00 Sodium 137.8 mmol/L (137-145) 04/02/19 04:57 Potassium 3.8 mmol/L (3.6-5.0) 04/02/19 04:57 Chloride 109 mmol/L (98-107) H 04/02/19 04:57 Carbon Dioxide 17 mmol/L (22-30) L 04/02/19 04:57 Anion Gap 12 (5-19) 04/02/19 04:57 BUN 12 mg/dL (7-20) 04/02/19 04:57 Creatinine 1.30 mg/dL (0.52-1.25) H 04/02/19 04:57 Est GFR ( Amer) 50 (>60) L 04/02/19 04:57 Est GFR (MDRD) Non-Af 42 (>60) L 04/02/19 04:57 Glucose 99 mg/dL (75-110) 04/02/19 04:57 Calcium 8.4 mg/dL (8.4-10.2) 04/02/19 04:57 Total Bilirubin 0.3 mg/dL (0.2-1.3) 04/01/19 05:28 Direct Bilirubin 0.3 mg/dL (0.0-0.4) 04/01/19 05:28 Neonat Total Bilirubin Not Reportable 04/01/19 05:28 Neonat Direct Bilirubin Not Reportable 04/01/19 05:28 Neonat Indirect Bili Not Reportable 04/01/19 05:28 AST 21 U/L (14-36) 04/01/19 05:28 ALT 12 U/L (<35) 04/01/19 05:28 Alkaline Phosphatase 92 U/L (38-126) 04/01/19 05:28 Total Protein 6.6 g/dL (6.3-8.2) 04/01/19 05:28 Albumin 2.9 g/dL (3.5-5.0) L 04/01/19 05:28 Urine Color YELLOW 04/02/19 05:13 Urine Appearance CLEAR 04/02/19 05:13 Urine pH 7.0 (5.0-9.0) 04/02/19 05:13 Ur Specific [place] 1.014 04/02/19 05:13 Urine Protein 30 mg/dL (NEGATIVE) H 04/02/19 05:13 Urine Glucose (UA) NEGATIVE mg/dL (NEGATIVE) 04/02/19 05:13 Urine Ketones NEGATIVE mg/dL (NEGATIVE) 04/02/19 05:13 Urine Blood SMALL (NEGATIVE) H 04/02/19 05:13 Urine Nitrite NEGATIVE (NEGATIVE) 04/02/19 05:13 Urine Nitrite (Reflex) NEGATIVE (NEGATIVE) 03/29/19 18:40 Urine Bilirubin NEGATIVE (NEGATIVE) 04/02/19 05:13 Urine Urobilinogen NEGATIVE mg/dL (<2.0) 04/02/19 05:13 Ur Leukocyte Esterase NEGATIVE (NEGATIVE) 04/02/19 05:13 Leukocyte Esterase Rfl NEGATIVE (NEGATIVE) 03/29/19 18:40 Urine WBC (Auto) 0 /HPF 04/02/19 05:13 Urine RBC (Auto) 0 /HPF 04/02/19 05:13 Urine Bacteria (Auto) TRACE /HPF 04/02/19 05:13 Urine WBC (Reflex) < 1 /HPF 03/29/19 18:40 Squamous Epi Cells Auto <1 /HPF 03/29/19 18:40 Urine Mucus (Auto) RARE /LPF 04/02/19 05:13 Urine Ascorbic Acid NEGATIVE (NEGATIVE) 04/02/19 05:13 Impressions: Hip/Pelvis X-Ray 03/29/19 13:42 IMPRESSION: COMMINUTED INTERTROCHANTERIC FRACTURE OF THE RIGHT HIP. Chest X-Ray 03/29/19 15:01 IMPRESSION: NO ACUTE RADIOGRAPHIC FINDING IN THE CHEST. Fluoroscopy 03/30/19 00:00 IMPRESSION: Right hip nailing. Refer to operative note for further information. Hip/Pelvis X-Ray 03/30/19 00:00 IMPRESSION: Right hip nailing. Refer to operative note for further information. Plan Time Spent: Greater than 30 Minutes - Repeat the CBC and Chem-7 in 1 week Patient on Eliquis for DVT prophylaxis and the right hip surgery needs to watch for any fall precautions discussed with the patient understand very well Follow outpatients Dr. Taylor Patient is to follow outpatients media planner and pain management Stroke Is this a Stroke Patient?: No Acute Heart Failure - Is this a Heart Failure Patient?: No
--- NOTE | 2019-04-02 13:50 | Progress Note ---
Provider Note Provider Note: Discussed with the patient's daughter Buffy regarding the patient's conditions in discuss with the daughter that the patient have a history of Addiction And alcohol in the past and a history of pain issue And the premature she currently lives with her son and suggest to cover for the last 2 years after patient husb and but patients never seen a doctor in the discussed with the daughter to take him to the industrial safety and health manager psych and the pain management Discussed with the daughter about the Eliquis to be fall precautions
[2019-04-02 17:08] VITALS: BP 150/62
[2019-04-02] MEDS ORDERED: DOCUSATE SODIUM 100 MG CAPSULE PO SCH (18:00)
== END 2019-04-02 18:11 | DRG 482 ==
LOC: ER 13:35 → EH 17:13 → 4S 22:48
PROVIDERS: ADMIT Family Medicine; ATTEND Family Medicine
PROC: 0QS636Z Reposition Right Upper Femur with Intramedullary Internal Fixation Device, Percutaneous Approach (ICD-10-PCS; principal; 2019-03-30 14:30)
DX: S72.141A Displaced intertrochanteric fracture of right femur, initial encounter for closed fracture (principal); W01.0XXA Fall on same level from slipping, tripping and stumbling without subsequent striking against object, initial encounter; Y93.9 Activity, unspecified; Y92.009 Unspecified place in unspecified non-institutional (private) residence as the place of occurrence of the external cause; I10 Essential (primary) hypertension; M06.9 Rheumatoid arthritis, unspecified; F17.200 Nicotine dependence, unspecified, uncomplicated; Z88.5 Allergy status to narcotic agent; D72.829 Elevated white blood cell count, unspecified; G89.4 Chronic pain syndrome; Z91.19 Patient's noncompliance with other medical treatment and regimen; F03.90 Unspecified dementia, unspecified severity, without behavioral disturbance, psychotic disturbance, mood disturbance, and anxiety; R21 Rash and other nonspecific skin eruption
CPT/HCPCS: 01230; 36415; 71045; 80048; 80053; 81001; 85025; 85610; 85730; 87086; 87088; 87186; 93005; 93010; 96374; 99284; C1713; C1769; J0690; J2250; J2270; J2704; J3010; J3490; J7030; J7060